=== PATIENT | female | born 1985 | race Caucasian/White ===

== ENCOUNTER 2017-02-24 15:54 | Emergency (ER) | payer SELFPAY ==
[~2017-02-24] VITALS: Ht 162.6 cm; Wt 47.6 kg
--- NOTE | 2017-02-24 16:51 | ED Lower Extremity ---
General Chief Complaint: Lower Extremity Stated Complaint: R FOOT PAIN Nursing Triage Note: TO ED AMB REPORTS THAT SHE TWISTED R ANKLE ON SUNDAY HAS HAD PIAN SINCE. Nursing Sepsis Screen: No Definite Risk Source: patient Exam Limitations: no limitations History of Present Illness Time seen by provider: 16:44 Initial Comments This 31-year-old white female presents after sustaining an inversion injury to her right forefoot and ankle that occurred 2 days ago. The patient's complaint of pain over the base of the fifth metatarsal. She denies loss of sensation or range of motion affected extremity. She denies other injury and her accident. Patient is complaining of moderate sharp pain over the base of the fifth metatarsal made worse with palpation or movement. Allergies and Home Medications Allergies Coded Allergies: No Known Drug Allergies (Unverified , 02/24/17) Home Medications No Active Prescriptions or Reported Meds Constitutional: No chills, No fever EENTM: no symptoms reported Respiratory: No cough Cardiovascular: no symptoms reported Gastrointestinal: No abdominal pain Genitourinary: no symptoms reported Musculoskeletal: see HPI, joint pain (right forefoot pain) Skin: no symptoms reported Psychiatric/Neurological: No Symptoms Reported Past Hlundqp-Nljhsl-Xokrsq Hx Patient Social History Alcohol Use: Denies Use Recreational Drug Use: No Smoking Status: Current Everyday Smoker Recent Foreign Travel: No Contact w/Someone Who Travel: No Recent Infectious Disease Expo: No Reviewed Nursing Assessment Reviewed/Agree w Nursing PMH: Yes Physical Exam Vital Signs Vital Sign - Last 12Hours 02/24/17 16:00 Temp 99.0 Pulse 106 Resp 18 B/P (MAP) 118/76 O2 Delivery Room Air Capillary Refill : Less Than 3 Seconds General Appearance: WD/WN, no apparent distress Neck: normal inspection Cardiovascular: regular rate, rhythm Respiratory: lungs clear Gastrointestinal: normal bowel sounds, soft Feet: right foot swelling, right foot other (there is tenderness to palpation over the base of the right fifth metatarsal.) Neurologic/Tendon: normal sensation, normal motor functions Neurologic/Psychiatric: no motor/sensory deficits, alert, normal mood/affect Skin: normal color, warm/dry Progress/Results/Core Measures Results/Orders My Orders Orders - KADE ELDRIDGE MD Ankle, Right, 2 Views (02/24/17 16:06) Foot, Right, 3 View (02/24/17 16:06) Vital Signs/I&O Vital Sign - Last 12Hours 02/24/17 16:00 Temp 99.0 Pulse 106 Resp 18 B/P (MAP) 118/76 O2 Delivery Room Air Blood Pressure Mean: 90 Progress Note : Time: 16:47 Progress Note X-ray of the right foot and ankle demonstrated nondisplaced fracture the base of the fifth metatarsal. Romulo wrap and a postop shoe were applied. Departure Impression Impression: Primary Impression: Fracture of base of fifth metatarsal bone Qualified Codes: S92.351A - Displaced fracture of fifth metatarsal bone, right foot, initial encounter for closed fracture Disposition: HOME, SELF-CARE Condition: Improved Departure-Patient Inst. Decision time for Depature: 16:49 Referrals: NO,LOCAL PHYSICIAN (PCP) Primary Care Physician MARISA ADEN MD Patient Instructions: Stress Fracture of the Metatarsal Bone (DC) Add. Discharge Instructions: Romulo wrap and postop shoe for comfort. Hydrocodone for pain. Follow-up with Dr. Aden. Return if any problems or questions. All discharge instructions reviewed with patient and/or family. Voiced understanding. Scripts No Active Prescriptions or Reported Meds KADE ELDRIDGE MD Feb 24, 2017 16:51
--- NOTE | 2017-02-24 16:54 | Diagnostic Imaging Report ---
INDICATION: Rolled right foot and ankle with pain and swelling, laterally. TECHNIQUE: Three views of the right foot. CORRELATION STUDY: None. FINDINGS: There is a cleft-like defect at the lateral base of the fifth metatarsal. There is a lucency or gap of approximately nearly 2 mm. Remaining osseous structures appear to be intact and unremarkable. IMPRESSION: Lucency at the base of the fifth metatarsal. This has a somewhat sclerotic margin which may be reflective of a previous injury. Acute injury is not excluded and correlation with the patient's symptoms and site of pain is recommended. Otherwise, the right foot is unremarkable. Dictated by: Dictated on workstation # [id number]
[2017-02-24 16:56] VITALS: BP 118/76
--- OUTSIDE RECORDS SUMMARY | 2017-02-25 15:02 | XMS REPORT ---
Author Author MILAN HAMPTON Organization [employer] Address Unknown Phone Unavailable Care Team Providers Care Security Compliance Specialist Name Role Phone MILAN HAMPTON CP Unavailable Allergies, Adverse Reactions, Alerts Substance Reaction Event Type N.K.D.A. Info Not Available Non Drug Allergy Problems Problem Type Condition Code Onset Dates Condition Status Assessment Abdominal pain R10.9 Active Assessment Amenorrhea N91.2 Active Medications No Known Medications Procedures Procedure Coding System Code Date Office Visit, New Pt., Level 3 CPT-4 42206 November 30, 2015 URINALYSIS, AUTO, W/O SCOPE CPT-4 42741 November 30, 2015 URINE TEST CPT-4 04180 November 30, 2015 Vital Signs Date/Time: November 30, 2015 Cardiac Monitoring Heart Rate 76 bpm Temperature 98.4 F Weight 108.4 lbs Blood Pressure Diastolic 76 mmHg Blood Pressure Systolic 104 mmHg Results Name Result Date Reference Range Unit Abnormality Flag TEST, URINE (IN HOUSE) ----RESULTS Negative 20151130 ----Lot # [id number] ----Control + 20151130 ----Exp date 20151130 UA LONG DIP (IN HOUSE) ----ARTEM Negative 20151130 ----GLU Negative 20151130 ----SG 1.030 20151130 ----KET Negative 20151130 ----pH 6.0 20151130 ----Protein Negative 20151130 ----BLO Negative 20151130 ----MAITE Negative 20151130 ----Color Dark Yellow 20151130 ----Odor None 20151130 ----Exp date 20151130 ----URO 0.2 20151130 ----NIT Negative 20151130 ----Clarity Slightly Cloudy 20151130 ----Lot # [id number] Summary Purpose [employer] Submission
--- NOTE | 2017-02-26 12:25 | RADIOLOGY REPORT ---
NAME: AUSTEN LLAMAS [facility] REC#: [id number] PT STATUS: REG ER : 1985 PHYSICIAN: KADE ELDRIDGE MD ADMIT DATE: 02/24/17/ER Signed Date of Exam:02/24/17 ANKLE, RIGHT, 3 VIEWS INDICATION: Right foot and ankle, complains of pain and swelling around the lateral side. FINDINGS: 3 views of the right ankle demonstrates normal ossification. There is a fracture through the base of the fifth metatarsal. IMPRESSION: There is a fracture through the base of the fifth metatarsal. Dictated by: Dictated on workstation # [id number] Dict: 02/24/17 1629 Trans: 02/24/17 1639 [id number] Interpreted by: ABHILASH ALVARES MD Electronically signed by: ABHILASH ALVARES MD 02/24/17 1639 MTDD
== END 2017-02-24 16:58 | disposition home or self-care (01) ==
LOC: ER 15:58
DX: S92.354A Nondisplaced fracture of fifth metatarsal bone, right foot, initial encounter for closed fracture (principal); F17.210 Nicotine dependence, cigarettes, uncomplicated; X50.0XXA Overexertion from strenuous movement or load, initial encounter
CPT/HCPCS: 73600; 73610; 73630; 99283

== ENCOUNTER 2018-09-02 15:12 | Emergency (ER) | payer SELFPAY ==
[~2018-09-02] VITALS: Ht 165.1 cm; Wt 58.1 kg
--- NOTE | 2018-09-02 15:40 | ED General ---
General Stated Complaint: LOWER BACK AND ABD PAIN/BLOOD IN STOOL Source of Information: Patient Exam Limitations: No Limitations History of Present Illness Date Seen by Provider: Sep 02, 2018 Time Seen by Provider: 15:38 Initial Comments To ER per private vehicle with reports of left lower back pain and blood in the stool after bowel movements. She is on her menstrual period started spotting yesterday. However she's had normal appearing bowel movements, formed, neither constipated nor diarrhea with some blood following the bowel movements. She denies any rectal pain. No nausea or vomiting. No fevers or chills. No lightheadedness. No history of this. Timing/Duration: 1-2 Days Severity: Moderate Associated Systoms: No Nausea/Vomiting Allergies and Home Medications Allergies Coded Allergies: aspirin (Verified Adverse Reaction, Unknown, 09/02/18) WAS TOLD NOT TO TAKE IT AFTER HER TUBAL PREGANANCY Home Medications No Active Prescriptions or Reported Meds Patient Home Medication List Home Medication List Reviewed: Yes Review of Systems Review of Systems Constitutional: see HPI EENTM: see HPI Respiratory: no symptoms reported Cardiovascular: no symptoms reported Gastrointestinal: LLQ, abdominal pain; No constipation, No diarrhea, No hematemesis, No nausea, No vomiting Genitourinary: no symptoms reported Musculoskeletal: see HPI Skin: no symptoms reported Psychiatric/Neurological: No Symptoms Reported Hematologic/Lymphatic: No Symptoms Reported Past Orduhlx-Dvytsg-Khxjna Hx Patient Social History Recent Foreign Travel: No Contact w/Someone Who Travel: No Past Medical History Surgeries: Yes (TUBAL PREG. ) Neurological: No Genitourinary: No Gastrointestinal: No Musculoskeletal: No Endocrine: No HEENT: No Cancer: No Psychosocial: No Physical Exam Vital Signs Vital Signs - First Documented 09/02/18 15:25 Temp 98.0 Pulse 99 Resp 16 B/P (MAP) 123/84 (97) Pulse Ox 99 O2 Delivery Room Air Capillary Refill : Height, Weight, BMI Height: 5'4.00" Weight: 105lbs. oz. 47.696072ba; BMI Method:Stated General Appearance: No Apparent Distress, WD/WN Eyes: Bilateral Eye Normal Inspection, Bilateral Eye PERRL, Bilateral Eye EOMI HEENT: PERRL/EOMI, TMs Normal Neck: Full Range of Motion, Normal Inspection Respiratory: No Accessory Muscle Use, No Respiratory Distress Gastrointestinal: Normal Bowel Sounds, Non Tender, Soft Genital/Rectal: Other (rectal exam done with Ratna JAMES at the bedside. There is a very minor amount of dried blood around the rectum. I do not see any external hemorrhoids or fissures.) Extremity: Normal Capillary Refill, Normal Inspection Neurologic/Psychiatric: Alert, Oriented x3, No Motor/Sensory Deficits Skin: Normal Color, Warm/Dry Progress/Results/Core Measures Suspected Sepsis SIRS Temperature: Pulse: Respiratory Rate: Laboratory Tests 09/02/18 15:35: White Blood Count 5.0 Blood Pressure / Mean: Laboratory Tests 09/02/18 15:35: Creatinine 0.80, Platelet Count 182, Total Bilirubin 0.4 Results/Orders Lab Results Laboratory Tests Test 09/02/18 15:30 09/02/18 15:35 Range/Units Urine Color YELLOW Urine Clarity CLEAR Urine pH 6 5-9 Urine Specific [place] 1.025 H 1.016-1.022 Urine Protein 1+ H NEGATIVE Urine Glucose (UA) NEGATIVE NEGATIVE Urine Ketones NEGATIVE NEGATIVE Urine Nitrite NEGATIVE NEGATIVE Urine Bilirubin NEGATIVE NEGATIVE Urine Urobilinogen NORMAL NORMAL MG/DL Urine Leukocyte Esterase 1+ H NEGATIVE Urine RBC (Auto) 2+ H NEGATIVE Urine RBC NONE /HPF Urine WBC RARE /HPF Urine Squamous Epithelial Cells 2-5 /HPF Urine Crystals NONE /LPF Urine Bacteria NEGATIVE /HPF Urine Casts NONE /LPF Urine Mucus NEGATIVE /LPF Urine Culture Indicated NO White Blood Count 5.0 4.3-11.0 10^3/uL Red Blood Count 4.64 4.35-5.85 10^6/uL Hemoglobin 14.3 11.5-16.0 G/DL Hematocrit 42 35-52 % Mean Corpuscular Volume 90 80-99 FL Mean Corpuscular Hemoglobin 31 25-34 PG Mean Corpuscular Hemoglobin Concent 34 32-36 G/DL Red Cell Distribution Width 14.0 10.0-14.5 % Platelet Count 182 130-400 10^3/uL Mean Platelet Volume 11.0 H 7.4-10.4 FL Neutrophils (%) (Auto) 60 42-75 % Lymphocytes (%) (Auto) 28 12-44 % Monocytes (%) (Auto) 9 0-12 % Eosinophils (%) (Auto) 2 0-10 % Basophils (%) (Auto) 0 0-10 % Neutrophils # (Auto) 3.0 1.8-7.8 X 10^3 Lymphocytes # (Auto) 1.4 1.0-4.0 X 10^3 Monocytes # (Auto) 0.5 0.0-1.0 X 10^3 Eosinophils # (Auto) 0.1 0.0-0.3 10^3/uL Basophils # (Auto) 0.0 0.0-0.1 10^3/uL Sodium Level 137 135-145 MMOL/L Potassium Level 3.5 L 3.6-5.0 MMOL/L Chloride Level 104 98-107 MMOL/L Carbon Dioxide Level 26 21-32 MMOL/L Anion Gap 7 5-14 MMOL/L Blood Urea Nitrogen 10 7-18 MG/DL Creatinine 0.80 0.60-1.30 MG/DL Estimat Glomerular Filtration Rate > 60 BUN/Creatinine Ratio 13 Glucose Level 90 70-105 MG/DL Calcium Level 9.5 8.5-10.1 MG/DL Corrected Calcium 9.3 8.5-10.1 MG/DL Total Bilirubin 0.4 0.1-1.0 MG/DL Aspartate Amino Transf (AST/SGOT) 37 H 5-34 U/L Alanine Aminotransferase (ALT/SGPT) 43 0-55 U/L Alkaline Phosphatase 61 40-136 U/L Total Protein 8.0 6.4-8.2 GM/DL Albumin 4.3 3.2-4.5 GM/DL My Orders Orders - KAYLENE BOO APRN Cbc With Automated Diff (09/02/18 15:20) Comprehensive Metabolic Panel (09/02/18 15:20) Ua Culture If Indicated (09/02/18 15:20) Iv Heplock-Insert (Order) (09/02/18 15:20) Ct Abdomen/Pelvis W (09/02/18 15:36) Urine Bedside (09/02/18 15:36) Ns Iv 1000 Ml (Sodium Chloride 0.9%) (09/02/18 15:45) Iohexol Injection (Omnipaque 350 Mg/Ml 1 (09/02/18 15:45) Contrast Received (Contrast Received) (09/02/18 15:45) Ns (Ivpb) (Sodium Chloride 0.9% Ivpb Bag (09/02/18 15:45) Medications Given in ED Current Medications Medications Dose Ordered Sig/Leah Route Start Time Stop Time Status Last Admin Dose Admin Iohexol 100 ml ONCE ONCE IV 09/02/18 15:45 09/02/18 15:46 DC 09/02/18 16:04 100 ML Sodium Chloride 100 ml ONCE ONCE IV 09/02/18 15:45 09/02/18 15:46 DC 09/02/18 16:04 80 ML Vital Signs/I&O 09/02/18 15:25 Temp 98.0 Pulse 99 Resp 16 B/P (MAP) 123/84 (97) Pulse Ox 99 O2 Delivery Room Air Capillary Refill : Diagnostic Imaging Diagonstic Imaging: CT Comments NAME: AUSTEN LLAMAS [facility] REC#: [id number] PT STATUS: REG ER : 1985 PHYSICIAN: KAYLENE BOO APRN ADMIT DATE: 09/02/18/ER Draft Date of Exam:09/02/18 CT ABDOMEN/PELVIS W PROCEDURE: CT abdomen and pelvis with contrast. TECHNIQUE: Multiple contiguous axial images were obtained through the abdomen and pelvis after administration of intravenous contrast. INDICATION: Bloody stools with left back pain. COMPARISON: None available. FINDINGS: Lower chest: The lung bases are clear. No pericardial or pleural effusion. Peritoneum: No free intraperitoneal air or fluid. Liver and biliary system: The liver is normal. The gallbladder is normal. No biliary duct dilation. Spleen and Pancreas: Spleen is normal. The pancreas enhances normally without mass lesion or peripancreatic inflammatory changes. Adrenals: Normal. tract: The kidneys enhance normally without suspicious mass or obstruction. Urinary bladder is distended without wall thickening. Uterus and ovaries are normal in appearance. Air-filled tampon is present within the vagina. GI tract: Stomach is decompressed. No bowel obstruction. There is low-attenuation wall thickening in a contiguous fashion throughout the descending colon, sigmoid colon and rectum to the level of the anus. No loculated fluid collections to indicate abscess. Normal appendix. The terminal ileum is normal. Vasculature and Lymph nodes: Normal caliber aorta. No abdominal or pelvic lymphadenopathy. Musculoskeletal: No concerning osseous lesion. IMPRESSION: 1. Contiguous low-attenuation wall thickening of the colon from the level of the rectum through the descending colon raises the possibility of a subacute inflammatory bowel disease such as ulcerative colitis. No perforation, bowel obstruction, or abscess formation. Dictated on workstation # [id number] Dict: 09/02/18 1633 Trans: 09/02/18 1645 [id number] Interpreted by: TEJAL VANN MD Electronically signed by: Departure Communication (Admissions) [id number] discussed the findings on CT with the patient and the need for follow-up with surgeon to get a colonoscopy. In the meantime I'll put her on a course of Bactrim, Flagyl, prednisone. Impression Primary Impression: Colitis Disposition: HOME, SELF-CARE Condition: Stable Departure-Patient Inst. Decision time for Depature: 17:00 Referrals: JOSHUA PORTILLO BRETT D DO JENKINS, XAVIER M MD KIDO, TAKAAKI MD NO,LOCAL PHYSICIAN (PCP) Primary Care Physician Patient Instructions: General (DC) Add. Discharge Instructions: 1. Her CT scan showed findings of wall thickening of the descending colon all the way down to the rectum. This could be either infectious in nature such as from bacteria or it could be autoimmune such as in the case of ulcerative colitis or Crohns disease. He will need to follow-up with surgeon to schedule a colonoscopy to further evaluate this. In the meantime take the medication as directed. Scripts Prednisone (Prednisone) 10 Mg Tab 10 MG PO UD, #30 EACH 5 tablets on day 1 and 2 4 tablets on day 3 and 4 3 tablets on day 5 and 6 2 tablets on day 7 and 8 One tablet on day 9/10 Prov: KAYLENE BOO WAIVER ANALYST 09/02/18 Sulfamethoxazole/Trimethoprim (Bactrim Ds Tablet) 1 Each Tablet 1 EACH PO BID, #14 TAB Prov: KAYLENE BOO WAIVER ANALYST 09/02/18 Metronidazole (Metronidazole) 500 Mg Tablet 500 MG PO TID, #21 TAB Prov: KAYLENE BOO WAIVER ANALYST 09/02/18 KAYLENE BOO WAIVER ANALYST Sep 02, 2018 15:40
[2018-09-02] MEDS ORDERED: RECEIVED CONTRAST (Hold Metformin) IV SCH (15:45)
[2018-09-02] MEDS ORDERED: NS IV 1000 ML 1,000 ML IV SCH (15:45)
[2018-09-02] MEDS ORDERED: NS 100 ML (IVPB) BAG IV ONE (15:45)
[2018-09-02] MEDS ORDERED: IOHEXOL 350 MG/ML 100 ML (OMNIPAQUE 350) VIAL IV ONE (15:45)
[2018-09-02 15:47] LABS: BASOPHILS % (AUTO) 0 % (0-10); EOSINOPHILS # (AUTO) 0.1 10^3/uL (0.0-0.3); EOSINOPHILS % (AUTO) 2 % (0-10); HEMATOCRIT 42 % (35-52); HEMOGLOBIN 14.3 G/DL (11.5-16.0); LYMPHOCYTES # (AUTO) 1.4 X 10^3 (1.0-4.0); LYMPHOCYTES % (AUTO) 28 % (12-44); MEAN CORPUSCULAR HEMOGLOBIN 31 PG (25-34); MEAN CORPUSCULAR HGB CONC 34 G/DL (32-36); MEAN CORPUSCULAR VOLUME 90 FL (80-99); MONOCYTES # (AUTO) 0.5 X 10^3 (0.0-1.0); MONOCYTES % (AUTO) 9 % (0-12); NEUTROPHILS % (AUTO) 60 % (42-75); PLATELET COUNT 182 10^3/uL (130-400); RED BLOOD COUNT 4.64 10^6/uL (4.35-5.85)
[2018-09-02 15:50] LABS: BILIRUBIN,URINE NEGATIVE (NEGATIVE); CLARITY,URINE CLEAR; COLOR,URINE YELLOW; GLUCOSE, URINE (UA) NEGATIVE (NEGATIVE); KETONES,URINE NEGATIVE (NEGATIVE); LEUKOCYTE ESTERASE ,URINE 1+ (NEGATIVE); NITRITE,URINE NEGATIVE (NEGATIVE); PH,URINE 6 (5-9); PROTEIN,URINE 1+ (NEGATIVE); UROBILINOGEN,URINE NORMAL (NORMAL)
[2018-09-02 15:51] LABS: BACTERIA,URINE NEGATIVE /HPF; WBC,URINE RARE /HPF
[2018-09-02 16:09] LABS: ALANINE AMINOTRANSFERASE 43 U/L (0-55); ALBUMIN 4.3 GM/DL (3.2-4.5); ALKALINE PHOSPHATASE 61 U/L (40-136); BILIRUBIN,TOTAL 0.4 MG/DL (0.1-1.0); BUN/CREATININE RATIO 13; CALCIUM 9.5 MG/DL (8.5-10.1); CARBON DIOXIDE 26 MMOL/L (21-32); CHLORIDE 104 MMOL/L (98-107); GFR ESTIMATED > 60; GLUCOSE 90 MG/DL (70-105); POTASSIUM 3.5 MMOL/L (3.6-5.0); SODIUM 137 MMOL/L (135-145)
--- NOTE | 2018-09-02 16:45 | Diagnostic Imaging Report ---
PROCEDURE: CT abdomen and pelvis with contrast. TECHNIQUE: Multiple contiguous axial images were obtained through the abdomen and pelvis after administration of intravenous contrast. INDICATION: Bloody stools with left back pain. COMPARISON: None available. FINDINGS: Lower chest: The lung bases are clear. No pericardial or pleural effusion. Peritoneum: No free intraperitoneal air or fluid. Liver and biliary system: The liver is normal. The gallbladder is normal. No biliary duct dilation. Spleen and Pancreas: Spleen is normal. The pancreas enhances normally without mass lesion or peripancreatic inflammatory changes. Adrenals: Normal. tract: The kidneys enhance normally without suspicious mass or obstruction. Urinary bladder is distended without wall thickening. Uterus and ovaries are normal in appearance. Air-filled tampon is present within the vagina. GI tract: Stomach is decompressed. No bowel obstruction. There is low-attenuation wall thickening in a contiguous fashion throughout the descending colon, sigmoid colon and rectum to the level of the anus. No loculated fluid collections to indicate abscess. Normal appendix. The terminal ileum is normal. Vasculature and Lymph nodes: Normal caliber aorta. No abdominal or pelvic lymphadenopathy. Musculoskeletal: No concerning osseous lesion. IMPRESSION: 1. Contiguous low-attenuation wall thickening of the colon from the level of the rectum through the descending colon raises the possibility of a subacute inflammatory bowel disease such as ulcerative colitis. No perforation, bowel obstruction, or abscess formation. Dictated by: Dictated on workstation # [id number]
--- NOTE | 2018-09-02 16:57 | NUR ---
KAYLENE IN TALKING TO PT AT THIS TIME.
[2018-09-02] MEDS ORDERED: SULF1TAB35 PO (17:04)
[2018-09-02] MEDS ORDERED: METR-145 PO (17:04)
[2018-09-02] MEDS ORDERED: PRD10T PO (17:04)
[2018-09-02 17:26] VITALS: BP 106/63
== END 2018-09-02 17:26 | disposition home or self-care (01) ==
LOC: EDUNIT# 15:12 → ER 15:13
DX: K52.9 Noninfective gastroenteritis and colitis, unspecified (principal); Z88.6 Allergy status to analgesic agent
CPT/HCPCS: 36415; 74177; 80053; 81000; 84703; 85025

== ENCOUNTER 2018-10-17 14:27 | Outpatient (CLI) | payer OTHER ==
[~2018-10-17] VITALS: Ht 165.1 cm; Wt 58.1 kg
[~2018-10-17 14:27] MED LIST: METR-145 PO; PRD10T PO; SULF1TAB35 PO
== END 2018-10-17 14:58 | disposition home or self-care (01) ==
LOC: PREOP 14:27
PROVIDERS: ATTEND Surgery
DX: Z01.818 Encounter for other preprocedural examination (principal)

== ENCOUNTER 2018-10-21 09:29 | Day surgery (SDC) | payer OTHER ==
[~2018-10-21] VITALS: Ht 165.1 cm; Wt 58.1 kg
[2018-10-21] MEDS ORDERED: LACTATED RINGERS 1,000 ML IV STA (09:30)
[2018-10-21] MEDS ORDERED: LACTATED RINGERS 1,000 ML IV ONE (09:41)
[2018-10-21] MEDS ORDERED: PROPOFOL INJECTION 50 ML IV ONE (09:59)
[2018-10-21] MEDS ORDERED: MIDAZOLAM 2 MG/2 ML (VERSED) VIAL ONE (09:59)
--- NOTE | 2018-10-21 10:08 | Progress Note-Pre Operative ---
Pre-Operative Progress Note H&P Reviewed The H&P was reviewed, patient examined and no changes noted. Time Seen by Provider: 10:04 Date H&P Reviewed: Oct 21, 2018 Time H&P Reviewed: 10:05 Pre-Operative Diagnosis: rectal bleed JOSHUA PORTILLO DO Oct 21, 2018 10:08
[2018-10-21 10:13] VITALS: BP 113/71
--- NOTE | 2018-10-21 10:48 | Progress Note-Post Operative ---
Post-Operative Progess Note Surgeon (s)/Accounting Director (s) Surgeon JOSHUA PORTILLO DO Accounting Director: none Pre-Operative Diagnosis rectal bleed Post-Operative Diagnosis colon polyp int hemorrhoids Procedure & Operative Findings Date of Procedure 10/21/18 Procedure Performed/Findings Colon with hot bx Anesthesia Type IV Sedation by CUTTING AND SPLICING SUPERVISOR Estimated Blood Loss Estimated blood loss (mL): scant Specimens/Packing Specimens Removed rectal polyp JOSHUA PORTILLO DO Oct 21, 2018 10:47
--- NOTE | 2018-10-21 10:49 | Endoscopy Discharge Instruct ---
Endo Procedure/Findings Findings 1.: Polyp 2.: Internal Hemorrhoids Discharge Instructions - Activity: You might feel a little sleepy until tomorrow. This is due to the medicine you received to relax you. Until tomorrow, you should: NOT drive a car, operate machinery or power tools. NOT drink any alcoholic beverages. NOT make any important decisions or sign importortant papers. Do not return to work until tomorrow, unless otherwise instructed. Resume previous activities tomorrow. Diet: Start by taking liquids. If you tolerate liquids, advance to solid food. Make appt for 2 weeks Notify Physician - If you experience excessive bleeding, unusual abdominal pain, fever, or chest pain, contact your doctor immediately. Follow-Up: - I have received and understand the above instructions and will call my doctor if I have any further questions. Patient Signature Date Nurse Signature Other (Relationship) JOSHUA PORTILLO DO Oct 21, 2018 10:49
[2018-10-21 10:55] VITALS: BP 102/57
[2018-10-21 11:20] VITALS: BP 120/74
[2018-10-21 11:25] VITALS: BP 120/74
--- NOTE | 2018-10-21 12:01 | Anesthesia-General Post-Op ---
MAC Patient Condition Mental Status/LOC: Same as Preop Cardiovascular: Satisfactory Nausea/Vomiting: Absent Respiratory: Satisfactory Pain: Controlled Complications: Absent Post Op Complications Complications None Follow Up Care/Instructions Patient Instructions None needed. Anesthesiology Discharge Order Discharge Order Patient is doing well, no complaints, stable vital signs, no apparent adverse anesthesia problems. No complications reported per nursing. MARGARITA RAGLAND CRNA Oct 21, 2018 12:01
--- NOTE | 2018-10-22 04:08 | OPERATIVE REPORT ---
DATE OF SERVICE: 10/21/2018 PREOPERATIVE DIAGNOSIS: Rectal bleed. POSTOPERATIVE DIAGNOSES: 1. Colon polyp. 2. Internal hemorrhoids. PROCEDURE: Colonoscopy with hot biopsy. SURGEON: Alban Redman D.O. SILICA SPRAY MIXER: None. ANESTHESIA: IV sedation by TILE ERECTOR. SPECIMEN: Rectal polyp. BLOOD LOSS: Scant. FLUIDS: Per anesthesia. POSTOPERATIVE CONDITION: Stable. INDICATION FOR PROCEDURE: The patient is a 33-year-old female, who had been having some rectal bleeding and needed a workup. FINDINGS: The patient had a small polyp in the rectum, was biopsied and removed totally with hot biopsy. Also had some mild hemorrhoids, what looked like there may have been raw so it could have been causing bleeding, nothing else seen. PROCEDURE NOTE: After informed consent was obtained, the patient was brought to the endoscopy suite, placed in the bed in the left lateral decubitus position. She was administered IV sedation by the TILE ERECTOR who then monitored her vitals the entire time, heart rate, blood pressure and pulse ox and the scope was inserted. Immediately upon entry noted a polyp in the rectum, did elect to do a hot biopsy, able to remove the polyp totally with hot biopsy and then continued on pushing all the way to the cecum, took a picture of appendiceal orifice and able to get into the terminal ileum, took a picture of this as well and then slowly withdrew the scope insufflating to look circumferentially at the stein, looking at the cecum up the ascending colon to the hepatic flexure, then down the transverse colon, splenic flexure into the descending colon and down the sigmoid and finally into the rectum, retroflexed the rectal vault, saw some grade I internal hemorrhoids, and they looked a little bit red, looked like they probably had been inflamed and this most likely caused the bleeding, did not see an anal fissure. At this point, then removed the scope. The patient tolerated the procedure and she was recovered in the endoscopy suite. Job ID: [id number] DocumentID: [id number] Dictated Date: 10/21/2018 16:19:22 Community Relations Advisor Date: 10/22/2018 04:07:27 Dictated By: ALBAN REDMAN DO MTDJosh
== END 2018-10-21 11:25 | disposition home or self-care (01) ==
LOC: ENDO 09:29
PROVIDERS: ATTEND Surgery
DX: K62.1 Rectal polyp (principal); K64.0 First degree hemorrhoids; F17.210 Nicotine dependence, cigarettes, uncomplicated
CPT/HCPCS: 84703

== ENCOUNTER → 2018-11-08 | Emergency (ER) | payer OTHER ==
--- NOTE | 2018-11-08 10:57 | NUR ---
Called to room. Pt not in waiting room.
== END | disposition left against medical advice (07) ==
LOC: EDUNIT# 10:09 → ER 10:11
DX: R42 Dizziness and giddiness (principal)

== ENCOUNTER → 2018-11-12 | Outpatient (CLI) | payer OTHER ==
--- NOTE | 2018-11-12 10:47 | Diagnostic Imaging Report ---
INDICATION: Elevated liver enzymes. Right upper quadrant pain. History of alcohol usage. TECHNIQUE: Multiple grayscale sonographic images were obtained of the right upper quadrant of the abdomen. CORRELATION STUDY: None FINDINGS: LIVER: There is uniform echotexture within the visualized portions of the liver. There is normal, hepatopedal direction of flow within the main portal vein. Liver length 13.2 cm. GALLBLADDER: The gallbladder demonstrates no definitive shadowing gallstones. No abnormal gallbladder wall thickening or pericholecystic fluid. COMMON BILE DUCT: Nondilated at 2 mm. PANCREAS: Visualized portions appearing unremarkable. RIGHT KIDNEY: Measures 9.3 x 3.9 x 4.5 cm. No hydronephrosis. AORTA/IVC: Not well visualized. OTHER: None. IMPRESSION: 1. Negative appearing right upper quadrant abdominal ultrasound. Dictated by: Dictated on workstation # [id number]
== END ==
LOC: RAD 08:41
PROVIDERS: ATTEND Nurse Practitioner Primary Care
DX: F10.10 Alcohol abuse, uncomplicated (principal); R10.11 Right upper quadrant pain; R74.8 Abnormal levels of other serum enzymes
CPT/HCPCS: 76705

== ENCOUNTER 2019-01-04 01:00 | Emergency (ER) | payer SELFPAY, OTHER | END 2019-01-04 02:51 | disposition home or self-care (01) | LOC: ER 01:00 ==

== ENCOUNTER 2019-01-10 22:22 | Emergency (ER) | payer SELFPAY ==
[~2019-01-10] VITALS: Ht 165.1 cm; Wt 59.0 kg
[~2019-01-10 22:22] MED LIST changes: +ACHD5005 PO
--- NOTE | 2019-01-10 22:34 | ED General ---
General Chief Complaint: General Problems/Pain Stated Complaint: R WRIST PAIN Source of Information: Patient Exam Limitations: No Limitations History of Present Illness Date Seen by Provider: January 10, 2019 Time Seen by Provider: 22:32 Initial Comments This patient presents to ER with complaints of right wrist pain. She broke her right wrist on 01/04/19. She is currently wearing a sugar tong splint, states that she was given 10 hydrocodone at the time but is out of them and is having quite a bit of pain in the wrist. No tingling of the fingers. Timing/Duration: 1-2 Days Severity: Moderate Allergies and Home Medications Allergies Coded Allergies: aspirin (Verified Adverse Reaction, Unknown, 09/02/18) WAS TOLD NOT TO TAKE IT AFTER HER TUBAL PREGANANCY Home Medications Hydrocodone Bit/Acetaminophen 1 Tab Tab, 1 EACH PO Q4-6HR PRN for PAIN-MODERATE Prescribed by: KATE RASHEED on 01/04/19 0233 Patient Home Medication List Home Medication List Reviewed: Yes Review of Systems Review of Systems Constitutional: see HPI EENTM: see HPI Respiratory: no symptoms reported Cardiovascular: no symptoms reported Genitourinary: no symptoms reported Musculoskeletal: see HPI Skin: no symptoms reported Psychiatric/Neurological: No Symptoms Reported Hematologic/Lymphatic: No Symptoms Reported Immunological/Allergic: no symptoms reported Past Vhizsjl-Howcmt-Tzyqhd Hx Patient Social History Type Used: Cigarettes Recent Foreign Travel: No Contact w/Someone Who Travel: No Recent Hopitalizations: No Seasonal Allergies Seasonal Allergies: Yes Past Medical History Surgeries: Yes (TUBAL PREG. ) Section, Tubal Ligation Respiratory: Yes Asthma Cardiac: No Neurological: No Genitourinary: No Gastrointestinal: Yes (rectal bleeding) Musculoskeletal: No Endocrine: No HEENT: No Cancer: No Psychosocial: No Integumentary: No Blood Disorders: No Physical Exam Vital Signs Capillary Refill : Height, Weight, BMI Height: 5'5.00" Weight: 130lbs. 0oz. 58.377337kd; 21.3 BMI Method:Stated General Appearance: No Apparent Distress, WD/WN Eyes: Bilateral Eye Normal Inspection, Bilateral Eye PERRL, Bilateral Eye EOMI Neck: Full Range of Motion, Normal Inspection Respiratory: No Accessory Muscle Use Extremity: Normal Capillary Refill, Normal Inspection, Other (right arm is in a sugar tong style splint, fingertips each have brisk capillary refill and normal sensation.) Neurologic/Psychiatric: Alert, Oriented x3 Skin: Normal Color, Warm/Dry Progress/Results/Core Measures Suspected Sepsis SIRS Temperature: Pulse: Respiratory Rate: Blood Pressure / Mean: Results/Orders Vital Signs/I&O Capillary Refill : Departure Impression Primary Impression: Wrist fracture Qualified Codes: S62.101D - Fracture of unspecified carpal bone, right wrist, subsequent encounter for fracture with routine healing Disposition: 01 HOME, SELF-CARE Condition: Stable Departure-Patient Inst. Decision time for Depature: 22:34 Referrals: [facility] [place] Primary Care Physician SILVER HAMILTON APRN (Family) Primary Care Physician Patient Instructions: Wrist Fracture (DC) KAYLENE BOO APRN January 10, 2019 22:34
[2019-01-10] MEDS ORDERED: RX-HYDROCODONE/APAP 5/325 MG #4 TAB PK PO PRN (22:45)
[2019-01-10 22:50] VITALS: BP 121/80
== END 2019-01-10 22:58 | disposition home or self-care (01) ==
LOC: EDUNIT# 22:22 → ER 22:23
DX: S62.91XA Unspecified fracture of right hand, initial encounter for closed fracture (principal); J45.909 Unspecified asthma, uncomplicated; Z87.19 Personal history of other diseases of the digestive system; Z88.6 Allergy status to analgesic agent; Z98.51 Tubal ligation status; Z98.890 Other specified postprocedural states; X58.XXXA Exposure to other specified factors, initial encounter
CPT/HCPCS: 99283

== ENCOUNTER 2019-01-15 11:55 | Outpatient (CLI) | payer OTHER ==
[~2019-01-15] VITALS: Ht 165.1 cm; Wt 59.0 kg
[2019-01-15] MEDS ORDERED: FLUO20CA42 PO (14:25)
[2019-01-16] MEDS ORDERED: HYDR-4226 PO (15:04)
== END 2019-01-15 16:01 | disposition home or self-care (01) ==
LOC: PREOP 11:55
PROVIDERS: ATTEND Orthopaedic Surgery Orthopaedic Trauma
DX: Z01.818 Encounter for other preprocedural examination (principal)

== ENCOUNTER 2019-01-16 11:07 | Day surgery (SDC) | payer OTHER ==
[~2019-01-16] VITALS: Ht 165.1 cm; Wt 59.0 kg
[2019-01-16] VITALS (11 sets, daily range): BP systolic 99–140; BP diastolic 65–101
[~2019-01-16 11:07] MED LIST changes: +FLUO20CA42 PO
[2019-01-16] MEDS ORDERED: ceFAZolin 2 GM/50 ML NS 50 ML ONE (11:59)
[2019-01-16] MEDS ORDERED: fentaNYL INJECTION 100 MCG/2 ML AMP IV ONE (12:00)
[2019-01-16] MEDS ORDERED: BUPIVACAINE 0.25% 30 ML (SENSORCAINE) VIAL ONE (12:04)
[2019-01-16] MEDS ORDERED: ceFAZolin 2 GM/50 ML NS 50 ML IV ONE (12:15)
[2019-01-16] MEDS: LACTATED RINGERS 1,000 ML IV PRN ×3 (12:15→13:15)
[2019-01-16] MEDS ORDERED: morphine INJ 10 MG/ML 1ML (SYR OR VIAL) ONE (14:33)
--- NOTE | 2019-01-16 14:59 | Progress Note-Post Operative ---
Post-Operative Progess Note Surgeon (s)/Care Clinician (s) Surgeon LEON ENNIS DO Care Clinician: Alonso Mathews PA-C Pre-Operative Diagnosis Displaced intraarticular fracture Right distal radius Post-Operative Diagnosis Same Procedure & Operative Findings Date of Procedure 01/16/19 Procedure Performed/Findings ORIF Intraarticular fracture Right distal radius Anesthesia Type General Estimated Blood Loss Estimated blood loss (mL): 25mL Specimens/Packing Specimens Removed None Packing: None Drains: none Disposition: tolerated the procedure well; transferred to PACU in stable condition. LEON ENNIS DO Jan 16, 2019 14:59
[2019-01-16] MEDS ORDERED: PROMETHAZINE INJ 25 MG/ML (PHENERGAN) AMP IVP ONE (15:00)
[2019-01-16] MEDS ORDERED: ONDANSETRON 4 MG/2 ML (SDV) Z0FRAN IVP PRN (15:00)
[2019-01-16] MEDS ORDERED: HYDROmorphone 2 MG/ML VIAL (DILAUDID) IV ONE (15:00)
[2019-01-16] MEDS ORDERED: morphine INJ 10 MG/ML 1ML (SYR OR VIAL) IVP ONE (15:00)
[2019-01-16] MEDS ORDERED: HYDROcodone/APAP 5 MG/325 MG (LORTAB) TAB PO ONE (15:00)
[2019-01-16] MEDS ORDERED: HYDR-4226 PO (15:04)
--- NOTE | 2019-01-16 21:07 | Diagnostic Imaging Report ---
INDICATION: Fluoroscopy during right wrist ORIF. Fluoroscopy was provided in the OR during right wrist ORIF. There is a volar plate and numerous screws transfixing the distal radius. 70 seconds of fluoroscopy was utilized. IMPRESSION: Fluoroscopy during right radius ORIF. Dictated by: Dictated on workstation # [id number]
--- NOTE | 2019-01-22 21:53 | OPERATIVE REPORT ---
DATE OF SERVICE: 01/16/2019 PREPROCEDURE DIAGNOSIS: Closed, displaced, unstable intraarticular fracture of right distal radius. POSTPROCEDURE DIAGNOSIS: Closed, displaced, unstable intraarticular fracture of right distal radius. PROCEDURE: Open reduction and internal fixation of closed, displaced intraarticular fracture of right distal radius, includes three fragments. IMPLANTS USED: Synthes variable angle volar distal radius plate. ATTENDING SURGEON: Dr. Leon Connor. GPS NAVIGATION INSTALLER: Alnoso Mathews PA-C; MrYo Mathews's assistance was required secondary to the complexity of the case, to hold the necessary retractors protecting vital neurovascular structures and to increase the efficiency and efficacy of the case; this case would not have been possible without the presence of an title assistant. ANESTHESIA: General. ESTIMATED BLOOD LOSS: 25 mL. COMPLICATIONS: None. SPECIMENS: None. DRAINS: None. BRIEF HISTORY AND INDICATIONS: The patient is a 33-year-old ugeca-ucwk-oalwgpwr white female who approximately two weeks ago sustained a mechanical fall from a standing height, landing on her outstretched right hand. She subsequently had severe right wrist pain, swelling and gross deformity. She subsequently presented to the [facility] Emergency Department for evaluation. Upon presentation to the ED, plain radiographs of the right wrist demonstrated a displaced, intra-articular fracture of the right distal radius. The patient was placed in a well-molded splint and then referred to our office for definitive outpatient orthopedic followup. Upon presentation to our office, plain radiographs of the right wrist were obtained and reviewed, which did indeed demonstrate a displaced, angulated intra-articular fracture of the right distal radius. On exam, the patient had moderate right wrist edema, there were no open wounds, the skin was intact. She has significant tenderness to palpation over the dorsum of the right wrist and significant pain with any attempts at range of motion. All compartments were soft and compressible, motor and sensory function was grossly intact and the right hand was well perfused. I discussed the nature of her injury in detail including the natural history, prognosis and treatment options. I explained that given the nature of the injury, which included significant displacement, angulation as well as a significant intra-articular component that operative fixation was indicated. I discussed the recommended treatment with the patient in detail preoperatively including the risks, benefits, potential complications, expected outcomes, indications and alternatives. The risks that were discussed included significant bleeding, infection, damage to surrounding neurovascular, intra-articular and soft tissue structures, nerve damage, iatrogenic instability, mechanical irritation and/or failure of the hardware, nonunion, malunion, potential serious reactions to anesthesia, and potential need for secondary surgical procedures. The patient gave informed written consent to proceed as planned after all of her questions were answered to her satisfaction. PROCEDURE NOTE: After correctly identifying the patient as the patient in the preoperative holding area and after her operative site was appropriately marked, she was transferred to the operating room. Once in the operating room, she had successful induction of general anesthesia. She was transferred to radiolucent OR table and placed in the supine position. Right upper extremity was placed on a radiolucent arm table. A nonsterile tourniquet was placed on the upper brachium of the right arm. The right arm was then prepped and draped in the routine sterile fashion. Prior to beginning the case, we completed an operating room timeout with all parties involved in the case in agreement and verified appropriate infusion of prophylactic antibiotics. After exsanguination of the right arm with a sterile Esmarch bandage, the tourniquet was elevated to 250 mmHg. A skin marker was then used to shannan out the planned incision over the volar aspect of the right wrist centered over the FCR tendon, the standard volar Riki approach. After infusion with local anesthetic, a 10 blade scalpel was used to make an incision through the skin and subcutaneous tissue. A 15 blade scalpel was then used to gently dissect through the volar FCR sheath, the FCR tendon was then retracted radially with a self-retaining Weitlaner retractor and then 15 blade scalpel was then used to gently incise through the dorsal FCR tendon sheath. The deeper flexor tendons and median nerve were gently retracted ulnarly with a blunt self-retaining Weitlaner retractor to expose the pronator quadratus muscle. The origin of the pronator quadratus muscle was released from its radial attachment with a 15 blade scalpel. Then, with a 15 blade scalpel, brachioradialis insertion was also carefully released so as to mobilize the distal fragment. Incision was also made through the volar capsule with a 15 blade scalpel so as to obtain visualization of the articular surface of the distal radius. All fragments were then anatomically reduced and temporarily held in place with a series of K-wires. C-arm fluoroscopy confirmed that the fracture had been adequately reduced and was in acceptable alignment in both AP and lateral planes. Visualization of the articular surface confirmed anatomic reduction of the intra-articular fragment, which involved the ulnar aspect of the lunate facet. Once adequate reduction was confirmed, the Synthes volar variable angle distal radius plate was positioned on the volar aspect of the distal radius under C-arm guidance so as to ensure appropriate placement. The plate was temporarily held in place with small K-wires through the plate. Fixation was then applied through the plate first distally with a series of variable angle locking screws. The shaft of the plate was then reduced to the distal radial shaft, so as to recreate the appropriate volar tilt. The shaft of the plate was then secured to the bone with a series of nonlocking fully threaded cortical screws. Once this was accomplished, the remaining fixation was applied through the distal aspect of the plate with a series of variable angle locking screws. This was all completed under fluoroscopic guidance. Once the plate was applied, AP and lateral C-arm imaging confirmed that all the hardware was then in an appropriate position and that alignment and reduction of the distal radius was acceptable. The tourniquet was then deflated and meticulous hemostasis was then achieved. The wound was then irrigated with copious amounts of sterile saline and then standard closure was accomplished using 0 Vicryl for the deep fascia, 3-0 Vicryl for the subcutaneous tissue, and a running 4-0 Monocryl subcuticular stitch and Steri-Strips for the skin. The patient then had a well-molded volar splint and sterile dressings applied, then was awakened from general anesthesia in the operating room without incident. She was then transferred to the PACU in stable condition. She tolerated the procedure quite well without complications. All counts were correct at the end of the case. Job ID: [id number] DocumentID: [id number] Dictated Date: 01/22/2019 14:47:47 Paper Stripper Date: 01/22/2019 21:53:12 Dictated By: LEON VILLA
== END 2019-01-16 17:15 | disposition home or self-care (01) ==
LOC: SDC 11:07
PROVIDERS: ATTEND Orthopaedic Surgery Orthopaedic Trauma
DX: S52.571A Other intraarticular fracture of lower end of right radius, initial encounter for closed fracture (principal); W19.XXXA Unspecified fall, initial encounter; M79.7 Fibromyalgia; F32.9 Major depressive disorder, single episode, unspecified; F17.210 Nicotine dependence, cigarettes, uncomplicated; Z79.899 Other long term (current) drug therapy
CPT/HCPCS: 84703; 87081

== ENCOUNTER 2019-01-31 10:24 | Emergency (ER) | payer SELFPAY ==
[~2019-01-31] VITALS: Ht 165.1 cm; Wt 56.7 kg
[~2019-01-31 10:24] MED LIST changes: +HYDR-4226 PO
[2019-01-31] MEDS ORDERED: IBUPROFEN 800 MG (MOTRIN) TAB PO STA (11:27)
--- NOTE | 2019-01-31 11:31 | ED Upper Extremity ---
General Chief Complaint: Upper Extremity Stated Complaint: RT ARM INJ Nursing Triage Note: Pt reports having wrist surgery for a broken wrist two weeks ago. Pt reports reaching for something today and heard a pop in wrist. Pt is now reporting pain in forearm and bicep area. Nursing Sepsis Screen: No Definite Risk History of Present Illness Date Seen by Provider: Jan 31, 2019 Time Seen by Provider: 11:20 Initial Comments 33-year-old female presents for right forearm pain. She had a right distal radius fracture in late December and ORIF by Dr. Connor. Today she was wearing her splint when she reached across her kitchen table and felt a pop in the right forearm. She denies any numbness or tingling in the right hand. She took Tylenol earlier today. She denies any falls or other trauma related to the right wrist or forearm. She is right-hand dominant. Onset: this morning Pain/Injury Location: right forearm Method of Injury: twisted Modifying Factors: Improves With Cold Therapy, Improves With Rest Allergies and Home Medications Allergies Coded Allergies: aspirin (Verified Adverse Reaction, Unknown, 09/02/18) WAS TOLD NOT TO TAKE IT AFTER HER TUBAL PREGANANCY Home Medications Fluoxetine HCl 20 Mg Capsule, 20 MG PO DAILY, (Reported) Hydrocodone/Acetaminophen 1 Each Tablet, 1 TAB PO Q4-6HR Prescribed by: LEON CONNOR on 01/16/19 1504 Patient Home Medication List Home Medication List Reviewed: Yes Review of Systems Constitutional: no symptoms reported, see HPI Musculoskeletal: see HPI, muscle pain (right forearm) All Other Systems Reviewed Negative Unless Noted: Yes Past Lstbjsc-Ufwatl-Ntvzwl Hx Past Med/Social Hx: Reviewed Nursing Past Med/Soc Hx Patient Social History Alcohol Use: Denies Use Recreational Drug Use: No Drug of Choice: hx 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 Smoking Status: Current Everyday Smoker Type Used: Cigarettes 2nd Hand Smoke Exposure: Yes Recent Foreign Travel: No Contact w/Someone Who Travel: No Recent Infectious Disease Expo: No Recent Hopitalizations: No Seasonal Allergies Seasonal Allergies: Yes Past Medical History Surgeries: Yes (TUBAL PREG-TUBE REMOVED AND OOPHORECTOMY) Section Respiratory: Yes (CHILDHOOD ) Asthma Cardiac: No Neurological: No Female Reproductive Disorders: Denies Sexually Transmitted Disease: No HIV/AIDS: No Genitourinary: No Gastrointestinal: Yes (HEP C) Chronic Constipation, Chronic Diarrhea, Hepatitis, Gall Bladder Disease Musculoskeletal: Yes Fibromyalgia, Chronic Back Pain, Fractures Endocrine: No HEENT: No Loss of Vision: Denies Hearing Impairment: Denies Cancer: No Psychosocial: Yes Depression Integumentary: No Blood Disorders: No Adverse Reaction/Blood Tranf: No (N/A) Physical Exam Vital Signs Vital Signs - First Documented 01/31/19 10:36 Temp 98.2 Pulse 90 Resp 16 B/P (MAP) 123/98 (106) Pulse Ox 97 O2 Delivery Room Air Capillary Refill : Less Than 3 Seconds Height, Weight, BMI Height: 5'5.00" Weight: 125lbs. 0.0oz. 56.707924kk; 21.6 BMI Method:Stated General Appearance: WD/WN, no apparent distress Cardiovascular: normal peripheral pulses, regular rate, rhythm Respiratory: chest non-tender, lungs clear, normal breath sounds Wrist: Yes bone tenderness (distal radius), Yes limited ROM (secondary to surgery right distal radius. Incision right wrist, volar surface, well healed with no signs of infection. ), Yes mass (Soft tissue swelling medial aspect right forearm, pt reports this has been present for many years. No erythema, warmth, induration or fluctuance. ), Yes pain, Yes soft tissue tenderness (right forearm); No swelling Hand: normal inspection, non-tender, no evidence of injury, normal ROM, Right Neurologic/Psychiatric: no motor/sensory deficits, alert, normal mood/affect, oriented x 3 Skin: normal color, warm/dry Lymphatic: no adenopathy Progress/Results/Core Measures Results/Orders My Orders Orders - CHELSEY DOWLING Ibuprofen Tablet (Motrin Tablet) (01/31/19 11:27) Forearm, Right, 2 Views (01/31/19 11:27) Vital Signs/I&O 01/31/19 01/31/19 10:36 12:00 Temp 98.2 98.2 Pulse 90 90 Resp 16 16 B/P (MAP) 123/98 (106) 123/98 (106) Pulse Ox 97 97 O2 Delivery Room Air Room Air Blood Pressure Mean: 106 Diagnostic Imaging Diagonstic Imaging: Xray Plain Films/CT/US/NM/MRI: forearm Comments NAME: AUSTEN LLAMAS [facility] REC#: [id number] PT STATUS: REG ER : 1985 PHYSICIAN: CHELSEY DOWLING ADMIT DATE: 01/31/19/ER Draft Date of Exam:01/31/19 FOREARM, RIGHT, 2 VIEWS INDICATION: 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 COMPARISON: 01/04/2019. TECHNIQUE: 2 radiographs of the right forearm dated 01/31/2019. FINDINGS: Plate and screw fixation of the distal radius is present without evidence of hardware complication. No new fracture or dislocation. No destructive osseous process. Carpal alignment is well maintained. Focal soft tissue prominence is identified medial to the proximal ulnar shaft, similar to the prior examination. IMPRESSION: Plate and screw fixation of the distal radius without evidence of hardware complication. No new acute osseous abnormality. Focal rounded soft tissue prominence medial to the proximal mid ulnar shaft overlying the subcutaneous tissues. This is of uncertain etiology though appears to have been present on prior imaging. Recommend direct visualization. Dictated on workstation # [id number] Dict: 01/31/19 1137 Trans: 01/31/19 1143 [id number] Interpreted by: RAO CERVANTES MD Electronically signed by: Reviewed: Reviewed by Me Departure Impression Primary Impression: Sprain of right forearm Qualified Codes: S63.501A - Unspecified sprain of right wrist, initial encounter Disposition: 01 HOME, SELF-CARE Condition: Improved Departure-Patient Inst. Decision time for Depature: 11:45 [place]errals: [facility] [facility] [place] Primary Care Physician SILVER HAMILTON APRN (Family) Primary Care Physician Patient Instructions: Wrist Sprain (DC) Add. Discharge Instructions: Continue to wear your wrist. Keep your scheduled follow-up with Dr. Connor, and pain management per him. Ice to right arm 20 minutes every 2 hours. Activity as tolerated. Alternate between ibuprofen 600 mg and Tylenol 650 mg every 4 hours. Return to emergency department for new, urgent health care needs. All discharge instructions reviewed with patient and/or family. Voiced understanding. Copy Copies To 1: LEON CONNOR AMY ARNP Jan 31, 2019 11:31
--- NOTE | 2019-01-31 11:43 | Diagnostic Imaging Report ---
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 COMPARISON: 01/04/2019. TECHNIQUE: 2 radiographs of the right forearm dated 01/31/2019. FINDINGS: Plate and screw fixation of the distal radius is present without evidence of hardware complication. No new fracture or dislocation. No destructive osseous process. Carpal alignment is well maintained. Focal soft tissue prominence is identified medial to the proximal ulnar shaft, similar to the prior examination. IMPRESSION: Plate and screw fixation of the distal radius without evidence of hardware complication. No new acute osseous abnormality. Focal rounded soft tissue prominence medial to the proximal mid ulnar shaft overlying the subcutaneous tissues. This is of uncertain etiology though appears to have been present on prior imaging. Recommend direct visualization. Dictated by: Dictated on workstation # [id number]
[2019-01-31 12:00] VITALS: BP 123/98
== END 2019-01-31 12:01 | disposition home or self-care (01) ==
LOC: EDUNIT# 10:24 → ER 10:26
DX: S63.501A Unspecified sprain of right wrist, initial encounter (principal); J45.909 Unspecified asthma, uncomplicated; B19.20 Unspecified viral hepatitis C without hepatic coma; M79.7 Fibromyalgia; F32.9 Major depressive disorder, single episode, unspecified; F17.210 Nicotine dependence, cigarettes, uncomplicated; Z88.6 Allergy status to analgesic agent; Z87.19 Personal history of other diseases of the digestive system; X50.1XXA Overexertion from prolonged static or awkward postures, initial encounter
CPT/HCPCS: 73090

== ENCOUNTER 2019-02-18 16:15 | Emergency (ER) | payer SELFPAY ==
[~2019-02-18] VITALS: Ht 165.1 cm; Wt 56.7 kg
--- NOTE | 2019-02-18 17:13 | ED Upper Extremity ---
General Chief Complaint: Laceration Stated Complaint: R FINGER LAC Nursing Triage Note: PT STATES SHE WAS DOING DISHES AND CUT HER FINGER, RT 2ND DIGIT, APPROXIMATELY 1 CM, BLEEDING CONTROLLED, LAST TETANUS MAY HAVE BEEN A COUPLE WEEKS AGO WHEN SHE HAD SURGERY ON RT WRIST. Nursing Sepsis Screen: No Definite Risk Source: patient Exam Limitations: no limitations History of Present Illness Date Seen by Provider: Feb 18, 2019 Time Seen by Provider: 17:11 Onset: just prior to arrival Severity: moderate Pain/Injury Location: left 2nd finger Method of Injury: unknown Modifying Factors: Improves With Movement Allergies and Home Medications Allergies Coded Allergies: aspirin (Verified Adverse Reaction, Unknown, 09/02/18) WAS TOLD NOT TO TAKE IT AFTER HER TUBAL PREGANANCY Home Medications Fluoxetine HCl 20 Mg Capsule, 20 MG PO DAILY, (Reported) Hydrocodone/Acetaminophen 1 Each Tablet, 1 TAB PO Q4-6HR Prescribed by: LEON ENNIS on 01/16/19 1504 Patient Home Medication List Home Medication List Reviewed: Yes Review of Systems Constitutional: see HPI EENTM: see HPI Respiratory: no symptoms reported Cardiovascular: no symptoms reported Genitourinary: no symptoms reported Musculoskeletal: see HPI Skin: no symptoms reported Psychiatric/Neurological: No Symptoms Reported Past Sckwzlc-Toxhps-Syhqsw Hx Patient Social History Alcohol Use: Denies Use Recreational Drug Use: No (DENIES ON 02/18/19) Drug of Choice: hx 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 Smoking Status: Current Everyday Smoker Type Used: Cigarettes 2nd Hand Smoke Exposure: Yes Recent Foreign Travel: No Contact w/Someone Who Travel: No Recent Infectious Disease Expo: No Recent Hopitalizations: No Physical Abuse: No Sexual Abuse: No Seasonal Allergies Seasonal Allergies: Yes Past Medical History Surgeries: Yes (TUBAL PREG-TUBE REMOVED AND OOPHORECTOMY, RT WRIST) Section, Orthopedic Respiratory: Yes (CHILDHOOD ) Asthma Cardiac: No Neurological: No : No Last Menstrual Period: Jan 31, 2019 Female Reproductive Disorders: Denies Sexually Transmitted Disease: No HIV/AIDS: No Genitourinary: No Gastrointestinal: Yes (HEP C) Chronic Constipation, Chronic Diarrhea, Hepatitis, Gall Bladder Disease Musculoskeletal: Yes Fibromyalgia, Chronic Back Pain, Fractures Endocrine: No HEENT: No Loss of Vision: Denies Hearing Impairment: Denies Cancer: No Psychosocial: Yes Depression Integumentary: No Blood Disorders: No Adverse Reaction/Blood Tranf: No (N/A) Physical Exam Vital Signs Vital Signs - First Documented 02/18/19 16:45 Temp 98.3 Pulse 108 Resp 22 B/P (MAP) 114/76 (89) Pulse Ox 98 O2 Delivery Room Air Capillary Refill : Less Than 3 Seconds Height, Weight, BMI Height: 5'5.00" Weight: 125lbs. 0.0oz. 56.909553cr; 21.6 BMI Method:Stated General Appearance: WD/WN, no apparent distress HEENT: PERRL/EOMI, normal ENT inspection Respiratory: no respiratory distress, no accessory muscle use Shoulder: normal inspection, non-tender Elbow/Forearm: normal inspection, non-tender, Left Wrist: Yes normal inspection, Yes non-tender Hand: Left, laceration (skin avulsion to the pad of the middle phalanx left pointer finger) Neurologic/Psychiatric: alert, normal mood/affect, oriented x 3 Skin: normal color, warm/dry Progress/Results/Core Measures Results/Orders My Orders Orders - KAYLENE BOO APRN Urine Bedside (02/18/19 17:02) Alprazolam Tablet (Xanax Tablet) (02/18/19 17:15) Vital Signs/I&O 02/18/19 16:45 Temp 98.3 Pulse 108 Resp 22 B/P (MAP) 114/76 (89) Pulse Ox 98 O2 Delivery Room Air Blood Pressure Mean: 89 Departure Impression Primary Impression: Skin avulsion Disposition: 01 HOME, SELF-CARE Condition: Stable Departure-Patient Inst. Decision time for Depature: 17:13 Referrals: [facility] [place]) Primary Care Physician SILVER HAMILTON APRN (Family) Primary Care Physician Patient Instructions: SKIN AVULSION Add. Discharge Instructions: 1. Return to ER for any concerns 2. Follow-up with your doctor next week 3. Rule out glue to follow up on its own. Do not apply any petroleum-based products like triple antibiotic ointment as this will dissolve the glue. You may shower allowing water run over this gently but do not soak it in water such as a hot tub bath tub or swimming pool until the glue falls off on its own in 3-5 days. All discharge instructions reviewed with patient and/or family. Voiced understanding. KAYLENE BOO APRN Feb 18, 2019 17:13
[2019-02-18] MEDS ORDERED: ALPRAZolam 0.25 MG (XANAX) TAB PO ONE (17:15)
[2019-02-18 17:30] VITALS: BP 114/76
[2019-02-18] MEDS ORDERED: IBUPROFEN 800 MG (MOTRIN) TAB PO ONE (17:30)
== END 2019-02-18 17:30 | disposition home or self-care (01) ==
LOC: EDUNIT# 16:15 → ER 16:16
DX: S61.210A Laceration without foreign body of right index finger without damage to nail, initial encounter (principal); J45.909 Unspecified asthma, uncomplicated; B19.20 Unspecified viral hepatitis C without hepatic coma; M79.7 Fibromyalgia; F32.9 Major depressive disorder, single episode, unspecified; F17.210 Nicotine dependence, cigarettes, uncomplicated; Z88.6 Allergy status to analgesic agent; W26.8XXA Contact with other sharp object(s), not elsewhere classified, initial encounter
CPT/HCPCS: 12041

== ENCOUNTER 2019-03-20 13:34 | Emergency (ER) | payer SELFPAY ==
[~2019-03-20] VITALS: Ht 165.1 cm; Wt 56.7 kg
[2019-03-20 14:07] LABS: BASOPHILS % (AUTO) 0 % (0-10); EOSINOPHILS # (AUTO) 0.1 10^3/uL (0.0-0.3); EOSINOPHILS % (AUTO) 3 % (0-10); LYMPHOCYTES % (AUTO) 26 % (12-44); MEAN CORPUSCULAR HGB CONC 34 G/DL (32-36); MEAN CORPUSCULAR VOLUME 87 FL (80-99); MEAN PLATELET VOLUME 10.1 FL (7.4-10.4); MONOCYTES # (AUTO) 0.5 X 10^3 (0.0-1.0); MONOCYTES % (AUTO) 14 % (0-12); NEUTROPHILS # (AUTO) 2.3 X 10^3 (1.8-7.8); NEUTROPHILS % (AUTO) 57 % (42-75); RED CELL DISTRIBUTION WIDTH 13.5 % (10.0-14.5)
[2019-03-20 14:15] LABS: WHITE BLOOD COUNT 4.4 10^3/uL (4.3-11.0)
[2019-03-20 14:16] LABS: HEMATOCRIT 39 % (35-52); HEMOGLOBIN 12.8 G/DL (11.5-16.0); MEAN CORPUSCULAR HEMOGLOBIN 29 PG (25-34); PLATELET COUNT 178 10^3/uL (130-400)
[2019-03-20 14:26] LABS: ALANINE AMINOTRANSFERASE 63 U/L (0-55); ALKALINE PHOSPHATASE 74 U/L (40-136); AMYLASE 24 U/L (25-125); BILIRUBIN,TOTAL 0.3 MG/DL (0.1-1.0); BUN/CREATININE RATIO 9; CALCIUM 9.1 MG/DL (8.5-10.1); CARBON DIOXIDE 25 MMOL/L (21-32); CHLORIDE 105 MMOL/L (98-107); CREATININE SERUM 0.77 MG/DL (0.60-1.30); GFR ESTIMATED > 60; GLUCOSE 73 MG/DL (70-105); LIPASE 4 U/L (8-78); POTASSIUM 3.2 MMOL/L (3.6-5.0); SODIUM 139 MMOL/L (135-145); TOTAL PROTEIN 7.4 GM/DL (6.4-8.2)
[2019-03-20] MEDS ORDERED: ONDANSETRON 4 MG/2 ML (SDV) Z0FRAN IVP ONE (14:45)
[2019-03-20 14:48] LABS: BILIRUBIN,URINE NEGATIVE (NEGATIVE); CLARITY,URINE CLEAR; COLOR,URINE YELLOW; GLUCOSE, URINE (UA) NEGATIVE (NEGATIVE); KETONES,URINE NEGATIVE (NEGATIVE); LEUKOCYTE ESTERASE ,URINE NEGATIVE (NEGATIVE); NITRITE,URINE NEGATIVE (NEGATIVE); PH,URINE 8 (5-9); PROTEIN,URINE NEGATIVE (NEGATIVE); UROBILINOGEN,URINE NORMAL (NORMAL)
[2019-03-20 14:51] LABS: HCG,QUALITATIVE URINE NEGATIVE (NEGATIVE)
[2019-03-20 14:58] LABS: BACTERIA,URINE FEW /HPF; WBC,URINE RARE /HPF
[2019-03-20 15:08] LABS: AMPHETAMINE SCREEN, URINE NEGATIVE (NEGATIVE); BARBITURATE SCREEN URINE NEGATIVE (NEGATIVE); BENZODIAZEPINES SCREEN URINE NEGATIVE (NEGATIVE); CANNABINOID SCREEN, URINE NEGATIVE (NEGATIVE); COCAINE SCREEN URINE NEGATIVE (NEGATIVE); METHADONE STAT NEGATIVE (NEGATIVE); METHAMPHETAMINE SCREEN URINE S NEGATIVE (NEGATIVE); OPIATE SCREEN URINE NEGATIVE (NEGATIVE); OXYCODONE STAT NEGATIVE (NEGATIVE); PROPOXYPHENE STAT NEGATIVE (NEGATIVE); TRICYCLIC ANTIDEPRESSANTS SCRE NEGATIVE (NEGATIVE)
[2019-03-20] MEDS ORDERED: ONDN4T PO (15:18)
[2019-03-20] MEDS ORDERED: HYOS0.1283 SL (15:18)
--- NOTE | 2019-03-20 15:18 | ED Abdominal Pain ---
General Chief Complaint: Abdominal/GI Problems Stated Complaint: N/V/D Nursing Triage Note: pt started having n/v/d last night. Pt states that the pain in mid abd. Pt states that she is unable to hold her head up Sepsis Screen: No Definite Risk Source of Information: Patient Exam Limitations: No Limitations History of Present Illness Date Seen by Provider: Mar 20, 2019 Time Seen by Provider: 13:40 Allergies and Home Medications Allergies Coded Allergies: aspirin (Verified Adverse Reaction, Unknown, 09/02/18) WAS TOLD NOT TO TAKE IT AFTER HER TUBAL PREGANANCY Home Medications Fluoxetine HCl 20 Mg Capsule, 20 MG PO DAILY, (Reported) Hydrocodone/Acetaminophen 1 Each Tablet, 1 TAB PO Q4-6HR Prescribed by: LEON ENNIS on 01/16/19 1504 Past Fowiffb-Ddmrrs-Odifvn Hx Patient Social History Alcohol Use: Denies Use Recreational Drug Use: No Drug of Choice: hx 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 Smoking Status: Current Everyday Smoker Type Used: Cigarettes 2nd Hand Smoke Exposure: Yes Recent Foreign Travel: No Contact w/Someone Who Travel: No Recent Infectious Disease Expo: No Recent Hopitalizations: No Seasonal Allergies Seasonal Allergies: Yes Past Medical History Surgeries: Yes (TUBAL PREG-TUBE REMOVED AND OOPHORECTOMY, RT WRIST) Section, Orthopedic Respiratory: Yes (CHILDHOOD ) Asthma Cardiac: No Neurological: No Female Reproductive Disorders: Denies Sexually Transmitted Disease: No HIV/AIDS: No Genitourinary: No Gastrointestinal: Yes (HEP C) Chronic Constipation, Chronic Diarrhea, Hepatitis, Gall Bladder Disease Musculoskeletal: Yes Fibromyalgia, Chronic Back Pain, Fractures Endocrine: No HEENT: No Loss of Vision: Denies Hearing Impairment: Denies Cancer: No Psychosocial: Yes Depression Integumentary: No Blood Disorders: No Adverse Reaction/Blood Tranf: No (N/A) Physical Exam Vital Signs Vital Signs - First Documented 03/20/19 13:40 Temp 96.5 Pulse 100 Resp 20 B/P (MAP) 126/88 (101) Pulse Ox 98 O2 Delivery Room Air Capillary Refill : Less Than 3 Seconds Height/Weight/BMI Height: 5'5.00" Weight: 125lbs. 0.0oz. [id number]; 21.6 BMI Method:Stated Progress/Results/Core Measures Results/Orders Lab Results Laboratory Tests Test 03/20/19 14:00 03/20/19 14:40 Range/Units White Blood Count 4.4 4.3-11.0 10^3/uL Red Blood Count 4.38 4.35-5.85 10^6/uL Hemoglobin 12.8 11.5-16.0 G/DL Hematocrit 39 35-52 % Mean Corpuscular Volume 87 80-99 FL Mean Corpuscular Hemoglobin 29 25-34 PG Mean Corpuscular Hemoglobin Concent 34 32-36 G/DL Red Cell Distribution Width 13.5 10.0-14.5 % Platelet Count 178 130-400 10^3/uL Mean Platelet Volume 10.1 7.4-10.4 FL Neutrophils (%) (Auto) 57 42-75 % Lymphocytes (%) (Auto) 26 12-44 % Monocytes (%) (Auto) 14 H 0-12 % Eosinophils (%) (Auto) 3 0-10 % Basophils (%) (Auto) 0 0-10 % Neutrophils # (Auto) 2.3 1.8-7.8 X 10^3 Lymphocytes # (Auto) 1.0 1.0-4.0 X 10^3 Monocytes # (Auto) 0.5 0.0-1.0 X 10^3 Eosinophils # (Auto) 0.1 0.0-0.3 10^3/uL Basophils # (Auto) 0.0 0.0-0.1 10^3/uL Sodium Level 139 135-145 MMOL/L Potassium Level 3.2 L 3.6-5.0 MMOL/L Chloride Level 105 98-107 MMOL/L Carbon Dioxide Level 25 21-32 MMOL/L Anion Gap 9 5-14 MMOL/L Blood Urea Nitrogen 7 7-18 MG/DL Creatinine 0.77 0.60-1.30 MG/DL Estimat Glomerular Filtration Rate > 60 BUN/Creatinine Ratio 9 Glucose Level 73 70-105 MG/DL Calcium Level 9.1 8.5-10.1 MG/DL Corrected Calcium 9.1 8.5-10.1 MG/DL Total Bilirubin 0.3 0.1-1.0 MG/DL Aspartate Amino Transf (AST/SGOT) 52 H 5-34 U/L Alanine Aminotransferase (ALT/SGPT) 63 H 0-55 U/L Alkaline Phosphatase 74 40-136 U/L Total Protein 7.4 6.4-8.2 GM/DL Albumin 4.0 3.2-4.5 GM/DL Amylase Level 24 L 25-125 U/L Lipase 4 L 8-78 U/L Urine Color YELLOW Urine Clarity CLEAR Urine pH 8 5-9 Urine Specific [place] 1.010 L 1.016-1.022 Urine Protein NEGATIVE NEGATIVE Urine Glucose (UA) NEGATIVE NEGATIVE Urine Ketones NEGATIVE NEGATIVE Urine Nitrite NEGATIVE NEGATIVE Urine Bilirubin NEGATIVE NEGATIVE Urine Urobilinogen NORMAL NORMAL MG/DL Urine Leukocyte Esterase NEGATIVE NEGATIVE Urine RBC (Auto) NEGATIVE NEGATIVE Urine RBC NONE /HPF Urine WBC RARE /HPF Urine Squamous Epithelial Cells 5-10 /HPF Urine Crystals NONE /LPF Urine Bacteria FEW H /HPF Urine Casts NONE /LPF Urine Mucus NEGATIVE /LPF Urine Culture Indicated NO Urine Test NEGATIVE NEGATIVE Urine Opiates Screen NEGATIVE NEGATIVE Urine Oxycodone Screen NEGATIVE NEGATIVE Urine Methadone Screen NEGATIVE NEGATIVE Urine Propoxyphene Screen NEGATIVE NEGATIVE Urine Barbiturates Screen NEGATIVE NEGATIVE Ur Tricyclic Antidepressants Screen NEGATIVE NEGATIVE Urine Phencyclidine Screen NEGATIVE NEGATIVE Urine Amphetamines Screen NEGATIVE NEGATIVE Urine Methamphetamines Screen NEGATIVE NEGATIVE Urine Benzodiazepines Screen NEGATIVE NEGATIVE Urine Cocaine Screen NEGATIVE NEGATIVE Urine Cannabinoids Screen NEGATIVE NEGATIVE My Orders Orders - FRED CARMONA Comprehensive Metabolic Panel (03/20/19 13:40) Lipase (03/20/19 13:40) Amylase (03/20/19 13:40) Ua Culture If Indicated (03/20/19 13:40) Ed Iv/Invasive Line Start (03/20/19 13:40) Cbc With Automated Diff (03/20/19 13:40) Hcg,Qualitative Urine (03/20/19 13:40) Drug Screen Stat (Urine) (03/20/19 13:40) Ondansetron Injection (Zofran Injectio (03/20/19 14:45) Vital Signs/I&O 03/20/19 13:40 Temp 96.5 Pulse 100 Resp 20 B/P (MAP) 126/88 (101) Pulse Ox 98 O2 Delivery Room Air Blood Pressure Mean: 101 Departure Impression Primary Impression: Nausea vomiting and diarrhea Disposition: 01 HOME, SELF-CARE Condition: Stable/Unchanged Departure-Patient Inst. Decision time for Depature: 15:17 Referrals: [facility] (PCP) Primary Care Physician SILVER HAMILTON APRN (Family) Primary Care Physician Patient Instructions: Viral Gastroenteritis, Adult (DC) Add. Discharge Instructions: You may use [id number] antidiarrheals as directed by the packaging. Take medications as directed. Drink plenty of fluids to stay hydrated. Follow-up with your primary care provider within 1 week for recheck. Return back to the emergency room for worsening symptoms or concerns as needed. All discharge instructions reviewed with patient and/or family. Voiced understanding. Scripts Ondansetron HCl (Zofran) 4 Mg Tab 4 MG PO Q4H PRN for NAUSEA/VOMITING-1ST LINE, #14 TAB Prov: FRED CARMONA 03/20/19 Hyoscyamine Sulfate (Levsin-Sl) 0.125 Mg Tab.subl 0.125 MG SL Q4H PRN for CRAMPS, #10 TAB 0 Refills Prov: FRED CARMONA 03/20/19 Work/School Note: Work Release Form Date Seen in the Emergency Department: Mar 20, 2019 Return to Work: Mar 22, 2019 Restrictions: No Restrictions FRED CARMONA Mar 20, 2019 15:18
[2019-03-20 15:29] VITALS: BP 143/72
[2019-03-20] MEDS ORDERED: NS IV 1000 ML 1,000 ML IV SCH (15:30)
== END 2019-03-20 15:29 | disposition home or self-care (01) ==
LOC: EDUNIT# 13:34 → ER 13:35
DX: R11.2 Nausea with vomiting, unspecified (principal); R19.7 Diarrhea, unspecified; J45.909 Unspecified asthma, uncomplicated; B19.20 Unspecified viral hepatitis C without hepatic coma; M79.7 Fibromyalgia; F32.9 Major depressive disorder, single episode, unspecified; F17.210 Nicotine dependence, cigarettes, uncomplicated; Z87.19 Personal history of other diseases of the digestive system; Z88.6 Allergy status to analgesic agent; Z98.51 Tubal ligation status
CPT/HCPCS: 36415; 80053; 80306; 81000; 82150; 83690; 84703; 85025

== ENCOUNTER 2019-07-17 19:19 | Emergency (ER) | payer SELFPAY ==
[~2019-07-17] VITALS: Ht 165.1 cm; Wt 56.8 kg
[~2019-07-17 19:19] MED LIST changes: +HYOS0.1283 SL; +ONDN4T PO
[2019-07-17] MEDS ORDERED: AMOX-358 PO (19:57)
--- NOTE | 2019-07-17 19:57 | ED EENT ---
History of Present Illness General Stated Complaint: BIALT EAR PAIN/HARD TO HEAR/ COUGH Source: patient Exam Limitations: no limitations History of Present Illness Date Seen by Provider: Jul 17, 2019 Time Seen by Provider: 19:55 Initial Comments 34-year-old female who presents to emergency room with complaints of left ear pain for the past 3 days and a cough for the past 2 weeks. She denies fevers. She reports that her hearing is muffled. Reports the left ear is worse than the right. Allergies and Home Medications Allergies Coded Allergies: aspirin (Verified Adverse Reaction, Unknown, 09/02/18) WAS TOLD NOT TO TAKE IT AFTER HER TUBAL PREGANANCY Home Medications Amoxicillin/Potassium Clav 1 Each Tablet, 1 EACH PO BID Prescribed by: FRED CARMONA on 07/17/191956 Fluoxetine HCl 20 Mg Capsule, 20 MG PO DAILY, (Reported) Hydrocodone/Acetaminophen 1 Each Tablet, 1 TAB PO Q4-6HR Prescribed by: LEON ENNIS on 01/16/19 1504 Hyoscyamine Sulfate 0.125 Mg Tab.subl, 0.125 MG SL Q4H PRN for CRAMPS Prescribed by: FRED CARMONA on 03/20/19 1518 Ondansetron HCl 4 Mg Tab, 4 MG PO Q4H PRN for NAUSEA/VOMITING-1ST LINE Prescribed by: FRED CARMONA on 03/20/19 1518 Patient Home Medication List Home Medication List Reviewed: Yes Review of Systems Review of Systems Constitutional: see HPI; No chills, No fever Ears: See HPI, Pain (left ear pain) All Other Systems Reviewed Negative Unless Noted: Yes Past Bjnehqt-Minyos-Zvffge Hx Past Med/Social Hx: Reviewed Nursing Past Med/Soc Hx Patient Social History Drug of Choice: hx 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 Type Used: Cigarettes 2nd Hand Smoke Exposure: Yes Recent Foreign Travel: No Contact w/Someone Who Travel: No Recent Hopitalizations: No Seasonal Allergies Seasonal Allergies: Yes Past Medical History Surgeries: Yes (TUBAL PREG-TUBE REMOVED AND OOPHORECTOMY, RT WRIST) Section, Orthopedic Respiratory: Yes (CHILDHOOD ) Asthma Cardiac: No Neurological: No Female Reproductive Disorders: Denies Sexually Transmitted Disease: No HIV/AIDS: No Genitourinary: No Gastrointestinal: Yes (HEP C) Chronic Constipation, Chronic Diarrhea, Hepatitis, Gall Bladder Disease Musculoskeletal: Yes Fibromyalgia, Chronic Back Pain, Fractures Endocrine: No HEENT: No Loss of Vision: Denies Hearing Impairment: Denies Cancer: No Psychosocial: Yes Depression Integumentary: No Blood Disorders: No Adverse Reaction/Blood Tranf: No (N/A) Family Medical History Reviewed Nursing Family Hx Physical Exam Vital Signs Vital Signs - First Documented 07/17/19 07/17/19 19:24 20:21 Temp 36.8 Pulse 125 Resp 18 B/P (MAP) 135/64 (87) Pulse Ox 98 Height, Weight, BMI Height: 5'5.00" Weight: 125lbs. 0.0oz. 56.643134af; 21.6 BMI Method:Stated General Appearance: WD/WN, no apparent distress Ears: left ear TM red, left ear TM bulging Cardiovascular: normal peripheral pulses, regular rate, rhythm, no edema, no gallop, no JVD, no murmur Respiratory: chest non-tender, lungs clear, normal breath sounds, no respiratory distress, no accessory muscle use Neurologic/Psychiatric: alert, normal mood/affect, oriented x 3 Skin: normal color, warm/dry Departure Impression Primary Impression: Left otitis media Disposition: 01 HOME, SELF-CARE Condition: Stable/Unchanged Departure-Patient Inst. Decision time for Depature: 19:56 Referrals: [facility] [place] (PCP) Primary Care Physician SILVER HAMILTON APRN (Family) Primary Care Physician Patient Instructions: Ear Infections (Otitis Media) Add. Discharge Instructions: Take medications as directed. You may use cmmz-ssf-[id number] cold cough flu medications for your cough. Take a daily decongestant during her illness. Follow-up with her primary care provider within 1 week for recheck. Return back to the emergency room for worsening symptoms or concerns as needed. Scripts Amoxicillin/Potassium Clav (Augmentin 875-125 Tablet) 1 Each Tablet 1 EACH PO BID, #14 TAB 0 Refills Prov: FRED CARMONA 07/17/19 Work/School Note: Work Release Form Date Seen in the Emergency Department: Jul 17, 2019 Return to Work: Jul 18, 2019 Restrictions: No Restrictions FRED CARMONA Jul 17, 2019 19:57 POS
[2019-07-17 20:21] VITALS: BP 135/64
== END 2019-07-17 20:21 | disposition home or self-care (01) ==
LOC: EDUNIT# 19:19 → ER 19:20
DX: H66.92 Otitis media, unspecified, left ear (principal); J45.909 Unspecified asthma, uncomplicated; B19.20 Unspecified viral hepatitis C without hepatic coma; M79.7 Fibromyalgia; F32.9 Major depressive disorder, single episode, unspecified; Z79.82 Long term (current) use of aspirin; Z77.22 Contact with and (suspected) exposure to environmental tobacco smoke (acute) (chronic)
CPT/HCPCS: 99282

== ENCOUNTER 2021-03-30 01:08 | Emergency (ER) | payer MEDICAID ==
[~2021-03-30] VITALS: Ht 165.1 cm; Wt 49.9 kg
[~2021-03-30 01:08] MED LIST changes: +AMOX-358 PO; -SULF1TAB35 PO; +SULF1TAB38 PO
--- NOTE | 2021-03-30 01:42 | ED GI ---
General Stated Complaint: BLOOD CLOTTS FROM RECTUM Source of Information: Patient Exam Limitations: No Limitations History of Present Illness Date Seen by Provider: Mar 30, 2021 Time Seen by Provider: 01:28 Initial Comments Patient is a 35-year-old female who presents to the emergency department today with a chief complaint of bloody stools. Patient states that at about 10:00 yesterday evening she had sharp pain in her right lower quadrant and shortly after that started passing blood in her stools. She denies any rectal trauma. Patient states that she has had a history of bloody stools in the past. Per review of the medical record the patient saw Dr. Portillo in 2019 and had a colonoscopy where she was found to have a rectal polyp and some hemorrhoids. Rest of her colonoscopy was reviewed and was normal. Patient states that she has hepatitis C and she is concerned that it might be related. She states she feels often that she has to "strain" with bowel movements but she does not feel constipated. She also states that when she wipes the stool "looks like jelly". She denies any fevers or chills or nausea or vomiting. She is not lightheaded or dizzy with standing. She states her periods are irregular and she has them every 3 months. She is not on any daily medications. She does smoke. She has been taking some Aleve for the last couple of days but only 2 pills a day. No other complaints of illness or injury. All other review of systems reviewed and negative except as stated above. Timing/Duration: 24 Hours Severity/Quality: Moderate Activities at Onset: None Associated Symptoms: Denies Symptoms Allergies and Home Medications Allergies Coded Allergies: aspirin (Verified Adverse Reaction, Unknown, 09/02/18) WAS TOLD NOT TO TAKE IT AFTER HER TUBAL PREGANANCY Home Medications Amoxicillin/Potassium Clav 1 Each Tablet, 1 EACH PO BID Prescribed by: FRED CARMONA on 07/17/191956 Fluoxetine HCl 20 Mg Capsule, 20 MG PO DAILY, (Reported) Hydrocodone/Acetaminophen 1 Each Tablet, 1 TAB PO Q4-6HR Prescribed by: LEON ENNIS on 01/16/19 1504 Hyoscyamine Sulfate 0.125 Mg Tab.subl, 0.125 MG SL Q4H PRN for CRAMPS Prescribed by: FRED CARMONA on 03/20/19 1518 Ondansetron HCl 4 Mg Tab, 4 MG PO Q4H PRN for NAUSEA/VOMITING-1ST LINE Prescribed by: FRED CARMONA on 03/20/19 9828 Patient Home Medication List Home Medication List Reviewed: Yes Review of Systems Review of Systems Constitutional: see HPI EENTM: No Symptoms Reported Respiratory: No Symptoms Reported Cardiovascular: No Symptoms Reported Gastrointestinal: Other (Blood clots per rectum) Genitourinary: No Symptoms Reported Musculoskeletal: no symptoms reported Skin: no symptoms reported All Other Systems Reviewed Negative Unless Noted: Yes Past Pdpnvqs-Gfqzck-Loawva Hx Seasonal Allergies Seasonal Allergies: Yes Past Medical History Surgeries: Yes (TUBAL PREG-TUBE REMOVED AND OOPHORECTOMY, RT WRIST) Section, Orthopedic Respiratory: Yes (CHILDHOOD ) Asthma Cardiac: No Neurological: No Female Reproductive Disorders: Denies Sexually Transmitted Disease: No HIV/AIDS: No Genitourinary: No Gastrointestinal: Yes (HEP C) Chronic Constipation, Chronic Diarrhea, Hepatitis, Gall Bladder Disease Musculoskeletal: Yes Fibromyalgia, Chronic Back Pain, Fractures Endocrine: No HEENT: No Loss of Vision: Denies Hearing Impairment: Denies Cancer: No Psychosocial: Yes Depression Integumentary: No Blood Disorders: No Adverse Reaction/Blood Tranf: No (N/A) Physical Exam Vital Signs Capillary Refill : Height/Weight/BMI Height: 5'5.00" Weight: 125lbs. 0.0oz. 56.387689uw; 20.00 BMI Method:Stated General Appearance: WD/WN, no apparent distress HEENT: PERRL/EOMI Respiratory: lungs clear, normal breath sounds, no respiratory distress, no accessory muscle use Cardiovascular: regular rate, rhythm, tachycardia Gastrointestinal: normal bowel sounds, non tender, soft Rectal: normal exam (Small external hemorrhoid at the 12 o'clock position. Possibly some soft internal hemorrhoids are palpated in the rectal vault. The patient does have maroon blood in the rectal vault), tenderness (Mild tenderness) Extremities: normal range of motion, normal inspection Neurologic/Psychiatric: alert, normal mood/affect, oriented x 3 Skin: normal color, warm/dry Progress/Results/Core Measures Results/Orders My Orders Orders - CAMPBELL RECINOS MD Ed Iv/Invasive Line Start (03/30/21 01:20) Cbc With Automated Diff (03/30/21 01:20) Comprehensive Metabolic Panel (03/30/21 01:20) Fecal Occult Bedside (03/30/21 01:22) Hcg,Qualitative Serum (03/30/21 01:43) Progress Progress Note : Time: 01:42 Progress Note Fecal occult blood test initially ordered at the bedside however she is grossly positive on digital rectal exam 0219 patient had several attempts at blood draw by nursing as well as phlebotomy. there were unable to get blood and the patient became upset and left the ER AMA Departure Impression Primary Impression: Hematochezia Disposition: 07 AGAINST MEDICAL ADVICE Condition: Against Medical Advice Departure-Patient Inst. Referrals: [facility] [place] (PCP) Primary Care Physician SILVER HAMILTON APRN (Family) Primary Care Physician JOSHUA PORTILLO KATHRYN M MD Mar 30, 2021 01:42
[2021-03-30 02:17] VITALS: BP 133/86
== END 2021-03-30 02:17 | disposition left against medical advice (07) ==
LOC: EDUNIT# 01:08 → ER 01:12
DX: K92.1 Melena (principal); J45.909 Unspecified asthma, uncomplicated; F32.9 Major depressive disorder, single episode, unspecified; G89.29 Other chronic pain; Z79.899 Other long term (current) drug therapy; M54.9 Dorsalgia, unspecified; F17.290 Nicotine dependence, other tobacco product, uncomplicated; Z79.891 Long term (current) use of opiate analgesic
CPT/HCPCS: 82274

== ENCOUNTER 2021-04-28 20:07 | Emergency (ER) | payer MEDICAID ==
[~2021-04-28] VITALS: Ht 165.1 cm; Wt 49.9 kg
[2021-04-28] MEDS ORDERED: KETOROLAC 60 MG/2 ML VIAL IM ONE (20:15)
[2021-04-28] MEDS ORDERED: ORPHENADRINE 60 MG/2 ML (NORFLEX) AMP (ED ONLY) IM ONE (20:15)
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
--- NOTE | 2021-04-28 20:46 | Diagnostic Imaging Report ---
CLINICAL HISTORY: Left shoulder pain for one month. COMPARISON: None. TECHNIQUE: Three views of the left shoulder. FINDINGS: There is no acute fracture or dislocation of the left shoulder. Alignment is anatomic. The imaged joint spaces are preserved. The included left chest is clear. IMPRESSION: No acute fracture or dislocation in the left shoulder. Dictated by: Dictated on workstation # [id number]
[2021-04-28 21:16] VITALS: BP 109/85
== END 2021-04-28 21:16 | disposition home or self-care (01) ==
LOC: EDUNIT# 20:07 → ER 20:08
DX: M25.512 Pain in left shoulder (principal); J45.909 Unspecified asthma, uncomplicated; F32.9 Major depressive disorder, single episode, unspecified; G89.29 Other chronic pain; M54.9 Dorsalgia, unspecified; Z79.891 Long term (current) use of opiate analgesic; Z79.899 Other long term (current) drug therapy
CPT/HCPCS: 73030

== ENCOUNTER 2021-07-14 14:39 | Emergency (ER) | payer MEDICAID ==
[~2021-07-14] VITALS: Ht 165.1 cm; Wt 50.8 kg
--- NOTE | 2021-07-14 15:09 | ED GI ---
General Stated Complaint: COUGH,DIARRHEA Source of Information: Patient Exam Limitations: No Limitations History of Present Illness Date Seen by Provider: Jul 14, 2021 Time Seen by Provider: 14:41 Initial Comments 36-year-old female with past medical history of hepatitis coming in due to 1 episode of nonbloody nonbilious emesis as well as several episodes of nonbloody diarrhea today. Cough started yesterday as well. As far she knows she is not been around anybody sick. Has had chills but no fever that she knows of. Denies ever having COVID or being vaccinated for it. Denies any chest pain, shortness of breath, abdominal pain, weakness, numbness, rash, or any other concerns. Allergies and Home Medications Allergies Coded Allergies: aspirin (Verified Adverse Reaction, Unknown, 09/02/18) WAS TOLD NOT TO TAKE IT AFTER HER TUBAL PREGANANCY Patient Home Medication List Home Medication List Reviewed: Yes Amoxicillin/Potassium Clav (Augmentin 875-125 Tablet) 1 Each Tablet, 1 EACH PO BID Prescribed by: FRED CARMONA on 07/17/191956 Fluoxetine HCl (Prozac) 20 Mg Capsule, 20 MG PO DAILY, (Reported) Entered as Reported by: SILVER SELLERS on 01/15/19 1425 Hydrocodone/Acetaminophen (Hydrocodone/Acetaminophen 5 MG/325 MG TAB) 1 Each Tablet, 1 TAB PO Q4-6HR Prescribed by: LEON ENNIS on 01/16/19 1504 Hyoscyamine Sulfate (Levsin-Sl) 0.125 Mg Tab.subl, 0.125 MG SL Q4H PRN for CRAMPS Prescribed by: FRED CARMONA on 03/20/19 1518 Ondansetron HCl (Zofran) 4 Mg Tab, 4 MG PO Q4H PRN for NAUSEA/VOMITING-1ST LINE Prescribed by: FRED CARMONA on 03/20/19 1518 Review of Systems Review of Systems Constitutional: chills; No fever EENTM: No Blurred Vision Respiratory: Cough; Denies Shortness of Air Cardiovascular: Denies Chest Pain Gastrointestinal: Denies Abdominal Pain; Diarrhea, Nausea, Vomiting Genitourinary: Denies Burning Musculoskeletal: no symptoms reported Skin: no symptoms reported Psychiatric/Neurological: No Symptoms Reported Endocrine: No Symptoms Reported Hematologic/Lymphatic: No Symptoms Reported All Other Systems Reviewed Negative Unless Noted: Yes Past Xyrjvos-Aqfkyq-Nekakf Hx Patient Social History Tobacco Use?: Yes Substance use?: No Alcohol Use?: Yes Seasonal Allergies Seasonal Allergies: Yes Past Medical History Surgeries: Yes (TUBAL PREG-TUBE REMOVED AND OOPHORECTOMY, RT WRIST) Section, Orthopedic Respiratory: Yes (CHILDHOOD ) Asthma Cardiac: No Neurological: No Female Reproductive Disorders: Denies Sexually Transmitted Disease: No HIV/AIDS: No Genitourinary: No Gastrointestinal: Yes (HEP C) Chronic Constipation, Chronic Diarrhea, Hepatitis, Gall Bladder Disease Musculoskeletal: Yes Fibromyalgia, Chronic Back Pain, Fractures Endocrine: No HEENT: No Loss of Vision: Denies Hearing Impairment: Denies Cancer: No Psychosocial: Yes Depression Integumentary: No Blood Disorders: No Adverse Reaction/Blood Tranf: No (N/A) Physical Exam Vital Signs Vital Signs - First Documented 07/14/21 14:55 Temp 36.8 Pulse 80 Resp 18 B/P (MAP) 108/83 (91) Pulse Ox 97 O2 Delivery Room Air Capillary Refill : Height/Weight/BMI Height: 5'5.00" Weight: 125lbs. 0.0oz. [age]yo; 18.00 BMI Method:Stated General Appearance: WD/WN, no apparent distress HEENT: PERRL/EOMI, normal ENT inspection, pharynx normal Neck: non-tender, full range of motion, supple, normal inspection Respiratory: chest non-tender, lungs clear, normal breath sounds, no respiratory distress, no accessory muscle use Cardiovascular: regular rate, rhythm, no edema, no murmur Gastrointestinal: normal bowel sounds, non tender, soft; No distended, No guarding, No rebound Extremities: normal range of motion, non-tender, normal inspection, no pedal edema, no calf tenderness, normal capillary refill Back: normal inspection, no CVA tenderness, no vertebral tenderness Neurologic/Psychiatric: no motor/sensory deficits, alert, normal mood/affect Skin: normal color, warm/dry Lymphatic: no adenopathy Progress/Results/Core Measures Results/Orders Lab Results Laboratory Tests Test 07/14/21 15:00 Range/Units Influenza Type A (RT-PCR) Not Detected Not Detecte Influenza Type B (RT-PCR) Not Detected Not Detecte SARS-CoV-2 RNA (RT-PCR) Not Detected Not Detecte My Orders Orders - ZHOU ALBRIGHT MD Influenza A And B By Pcr (07/14/21 15:04) Covid 19 Inhouse Test (07/14/21 15:04) Ua Culture If Indicated (07/14/21 15:04) Acetaminophen Tablet (Tylenol Tablet) (07/14/21 15:15) Ondansetron Oral Dissolve Tab (Zofran (07/14/21 15:15) Medications Given in ED Current Medications Medications Dose Ordered Sig/Leah Route Start Time Stop Time Status Last Admin Dose Admin Acetaminophen 1,000 mg ONCE ONCE PO 07/14/21 15:15 07/14/21 15:16 DC 07/14/21 15:12 1,000 MG Ondansetron HCl 4 mg ONCE ONCE PO 07/14/21 15:15 07/14/21 15:16 DC 07/14/21 15:12 4 MG Vital Signs/I&O 07/14/21 14:55 Temp 36.8 Pulse 80 Resp 18 B/P (MAP) 108/83 (91) Pulse Ox 97 O2 Delivery Room Air Progress Progress Note : Progress Note 36-year-old female with above history coming in due to 1 episode of vomiting and a couple episodes of diarrhea. ABCs were intact and vitals were stable on presentation. Physical exam reassuring with a soft and nontender abdomen. COVID and influenza tested while here. She was given oral Zofran as well as oral Tylenol for her chills as well as nausea. The patient was able to drink a full cup of water with the medications and tolerated that without repeat vomiting. Covid testing and flu testing was negative. The patient is suspicious that she could have some type of foodborne illness because she said she ate old frozen pizza last night. Overall, her vitals remained stable and she is well-appearing. I have a very low suspicion for any more significant illness, and her abdominal exam once again is reassuring on reassessment. The patient was then discharged home in stable condition with strict return precautions Departure Impression Primary Impression: Vomiting Qualified Codes: R11.2 - Nausea with vomiting, unspecified Additional Impression: Diarrhea Qualified Codes: R19.7 - Diarrhea, unspecified Disposition: 01 HOME, SELF-CARE Condition: Improved Departure-Patient Inst. Decision time for Depature: 15:54 Referrals: [facility] [place] Primary Care Physician SILVER HAMILTON APRN (Family) Primary Care Physician Patient Instructions: Nausea and Vomiting, Adult ED Add. Discharge Instructions: You were seen in the emergency department for vomiting and diarrhea. Fortunately, your Covid test and flu testing were negative. There are many other viruses that can cause symptoms that you have. Most importantly, if you develop any bright red blood coming from your diarrhea, bright red blood coming in your vomit that is more than just some streaks, begin developing severe abdominal pain, or have any other concerns then you should come back to the ER. I sent nausea medications to your pharmacy. Continue to take small frequent sips of fluids, it is okay to not want to eat when you feel sick like this. If the diarrhea becomes persistent it is okay to take Lomotil to slow it down. Scripts Ondansetron (Ondansetron Odt) 4 Mg Tab.rapdis 4 MG PO Q6H PRN for NAUSEA/VOMITING-1ST LINE for 5 Days, #20 TAB Prov: ZHOU ALBRIGHT MD 07/14/21 Work/School Note: Work Release Form Date Seen in the Emergency Department: D 2020 Return to Work: Jul 15, 2021 Restrictions: Return-No Fever (24hrs) ZHOU ALBRIGHT MD Jul 14, 2021 15:09
[2021-07-14] MEDS ORDERED: ACETAMINOPHEN 500 MG TAB (TYLENOL) PO ONE (15:15)
[2021-07-14] MEDS ORDERED: ONDANSETRON 4 MG (ZOFRAN) ORAL DISSOLVE TAB PO ONE (15:15)
[2021-07-14] MEDS ORDERED: ONDA4TAB11 PO (15:56)
[2021-07-14 15:58] VITALS: BP 108/83
== END 2021-07-14 16:06 | disposition home or self-care (01) ==
LOC: EDUNIT# 14:39 → ER 14:41
DX: R11.10 Vomiting, unspecified (principal); R19.7 Diarrhea, unspecified; J45.909 Unspecified asthma, uncomplicated; F32.9 Major depressive disorder, single episode, unspecified; G89.29 Other chronic pain; M54.9 Dorsalgia, unspecified; Z72.0 Tobacco use; Z20.822 Contact with and (suspected) exposure to COVID-19; Z79.899 Other long term (current) drug therapy; Z79.891 Long term (current) use of opiate analgesic
CPT/HCPCS: 87636; 99283

== ENCOUNTER 2022-05-15 23:20 | Emergency (ER) | payer MEDICAID ==
[~2022-05-15] VITALS: Ht 165.1 cm; Wt 47.2 kg
[~2022-05-15 23:20] MED LIST changes: +ONDA4TAB11 PO
[2022-05-15 23:30] VITALS: BP 128/93
[2022-05-15] MEDS ORDERED: CYCL10TA25 PO (23:49)
[2022-05-15] MEDS ORDERED: NAPR500T8 PO (23:49)
--- NOTE | 2022-05-15 23:49 | ED Headache ---
General Chief Complaint: Head/Cervical Problems Stated Complaint: FIGUEREDO Nursing Triage Note: PT AMB TO FT 1 W C/O RIGHT EAR PAIN AND HEADACHE SX 1200 TODAY. PT A&OX4. Source: patient History of Present Illness Date Seen by Provider: May 15, 2022 Time Seen by Provider: 23:35 Initial Comments PT ARRIVES VIA POV FROM HOME WITH MALE S.O. C/O RIGHT SIDED "TENSION HEADACHE" SINCE NOON PAIN COMES AND GOES, AND IS WORSE WHEN SHE RUBS THE AREA PAIN IS ALSO TO HER RIGHT EXTERNAL EAR. NO CHANGES IN HEARING, NO DRAINAGE FROM EAR. NO PAIN FROM INSIDE THE EAR NO PARESTHESIAS OR MOTOR DEFICITS NO NECK PAIN OR STIFFNESS NO FEVER OR RECENT ILLNESS NO NAUSEA/VOMITING NO VISION CHANGES NO DIZZINESS NO INJURY TO THE AREA HAS NOT TAKEN ANYTHING FOR SYMPTOMS HAS HAD SIMILAR HEADACHES IN THE PAST PT IS CURRENTLY WEARING A VERY DIRTY AND WORN SPLINT AND SLING ON RIGHT ARM PT STATES SHE BROKE HER ELBOW 2 WEEKS AGO, AND IS BEING FOLLOWED WITH ORTHO 4 STATES IN [place]. PCP: [facility] Allergies and Home Medications Allergies Coded Allergies: aspirin (Verified Adverse Reaction, Unknown, 09/02/18) WAS TOLD NOT TO TAKE IT AFTER HER TUBAL PREGANANCY Patient Home Medication List Home Medication List Reviewed: Yes Amoxicillin/Potassium Clav (Augmentin 875-125 Tablet) 1 Each Tablet, 1 EACH PO BID Prescribed by: FRED CARMONA on 07/17/191956 Cyclobenzaprine HCl (Cyclobenzaprine HCl) 10 Mg Tablet, 10 MG PO Q8H PRN for SPASMS Prescribed by: ADAN WRIGHT on 05/15/22 2349 Fluoxetine HCl (Prozac) 20 Mg Capsule, 20 MG PO DAILY, (Reported) Entered as Reported by: SILVER SELLERS on 01/15/19 1425 Hydrocodone/Acetaminophen (Hydrocodone/Acetaminophen 5 MG/325 MG TAB) 1 Each Tablet, 1 TAB PO Q4-6HR Prescribed by: LEON ENNIS on 01/16/19 1504 Hyoscyamine Sulfate (Levsin-Sl) 0.125 Mg Tab.subl, 0.125 MG SL Q4H PRN for CRAMPS Prescribed by: FRED CARMONA on 03/20/19 1518 Naproxen (Naproxen) 500 Mg Tablet.dr, 500 MG PO BID Prescribed by: ADAN WRIGHT on 05/15/22 2349 Ondansetron (Ondansetron Odt) 4 Mg Tab.rapdis, 4 MG PO Q6H PRN for NAUSEA/VOMITING-1ST LINE Prescribed by: ZHOU ALBRIGHT on 07/14/21 1556 Ondansetron HCl (Zofran) 4 Mg Tab, 4 MG PO Q4H PRN for NAUSEA/VOMITING-1ST LINE Prescribed by: FRED CARMONA on 03/20/19 1518 Review of Systems Review of Systems Constitutional: no symptoms reported Eyes: No Symptoms Reported Ears, Nose, Mouth, Throat: see HPI Respiratory: no symptoms reported Cardiovascular: no symptoms reported Gastrointestinal: no symptoms reported Genitourinary: no symptoms reported : No Musculoskeletal: see HPI Skin: no symptoms reported; No rash Psychiatric/Neurological: See HPI Past Pvisksk-Qrryjx-Crrduj Hx Patient Social History Tobacco Use?: Yes Tobacco type used: Cigarettes Smoking Status: Current Everyday Smoker Use of E-Cig and/or Vaping dev: No Substance use?: No (DENIES) Alcohol Use?: No (DENIES) Immunizations Up To Date Influenza Vaccine Up-to-Date: No; Not Current First/Initial COVID19 Vaccinat: NONE Second COVID19 Vaccination Armando: NONE Third COVID19 Vaccination Date: NONE COVID19 Vaccine Wire Spring Relay Adjuster: NONE Seasonal Allergies Seasonal Allergies: Yes Past Medical History Surgery/Hospitalization HX: COLONOSCOPY WITH POLYPECTOMY [address] PORTILLO Surgeries: Yes (ECTOPIC PREG WITH SALPINGO-OOPHORECTOMY;RT WRIST FX/ORIF 2018) Section, Gallbladder, Oophorectomy, Orthopedic Respiratory: Yes (CHILDHOOD ) Asthma Cardiac: No Neurological: No Reproductive Disorders: Yes (ECTOPIC WITH SALPINGO-OOPHORECTOMY 2014) Female Reproductive Disorders: Denies Sexually Transmitted Disease: No HIV/AIDS: No Genitourinary: No Gastrointestinal: Yes (HEP C) Chronic Constipation, Chronic Diarrhea, Hepatitis, Polyps, Gall Bladder Disease Musculoskeletal: Yes (RIGHT DISTAL RADIUS FX/ORIF 2018) Fibromyalgia, Chronic Back Pain, Fractures Endocrine: No HEENT: No Loss of Vision: Denies Hearing Impairment: Denies Cancer: No Psychosocial: Yes Depression Integumentary: No Blood Disorders: No Adverse Reaction/Blood Tranf: No (N/A) Physical Exam Vital Signs Vital Signs - First Documented 05/15/22 23:30 Temp 36.8 Pulse 102 Resp 20 B/P (MAP) 128/93 (105) Pulse Ox 100 O2 Delivery Room Air Capillary Refill : Less Than 3 Seconds Height, Weight, BMI Height: 5'5.00" Weight: 125lbs. 0.0oz. [id number]; 17.00 BMI Method:Stated General Appearance: WD/WN, no apparent distress, other (RIGHT ARM IN SPLINT AND SLING. PT WITH RAPID AND SOMEWHAT ERRATIC SPEECH AND CONSTANT MOVEMENTS. ) HEENT: PERRL/EOMI, normal ENT inspection, TMs normal, pharynx normal, other (TENDERNESS TO RIGHT POSTERIOR PARIETAL AND OCCIPITAL AREAS, AND DOWN TO RIGHT LATERAL /POSTERIOR NECK AREA. NO SKIN CHANGES. NO PINPOINT MASTOID TENDERNESS AND NO ABNORMALITIES OF MASTOID AREA. NO ABNORMALITIES OR TENDERNESS TO RIGHT EXTERNAL EAR. ) Neck: full range of motion, supple Cardiovascular: regular rate, rhythm, no murmur Respiratory: normal breath sounds, no respiratory distress, no accessory muscle use Gastrointestinal: soft Back: normal inspection Extremities: normal capillary refill, other ( ABOVE. DISTAL MOTOR/SENSORY/VASCULAR INTACT TO FINGERS OF RIGHT ARM. ) Psychiatric: alert, oriented x 3 Crainal Nerves: normal hearing, normal speech, PERRL Coordination/Gait: normal gait Motor/Sensory: no motor deficit, no sensory deficit Skin: normal color, warm/dry Progress/Results/Core Measures Results/Orders My Orders Orders - ADAN WRIGHT DO Ketorolac Injection (Toradol Injection) (05/16/22 00:00) Orphenadrine Inj (Ed Only) (Norflex Inje (05/16/22 00:00) Diphenhydramine Injection (Benadryl Inje (05/16/22 00:00) Medications Given in ED Current Medications Medications Dose Ordered Sig/Leah Route Start Time Stop Time Status Last Admin Dose Admin Diphenhydramine HCl 50 mg ONCE ONCE IM 05/16/22 00:00 05/16/22 00:01 DC 05/16/22 00:16 50 MG Ketorolac Tromethamine 60 mg ONCE ONCE IM 05/16/22 00:00 05/16/22 00:01 DC 05/16/22 00:17 60 MG Orphenadrine Citrate 60 mg ONCE ONCE IM 05/16/22 00:00 05/16/22:01 DC 05/16/22 00:17 60 MG Vital Signs/I&O 05/15/22 23:30 Temp 36.8 Pulse 102 Resp 20 B/P (MAP) 128/93 (105) Pulse Ox 100 O2 Delivery Room Air Blood Pressure Mean: 105 Departure Impression Primary Impression: Tension type headache Disposition: HOME, SELF-CARE Condition: Stable Departure-Patient Inst. Decision time for Depature: 23:48 [facility] Primary Care Physician LETITIA OGDEN (Family) Primary Care Physician Patient Instructions: Tension Headache (DC) Add. Discharge Instructions: MOIST HEAT TO AREA AT 20 MINUTE INTERVALS TYLENOL NEEDED FOR PAIN FOLLOW UP WITH [facility] IN 1-2 DAYS IF NO BETTER All discharge instructions reviewed with patient and/or family. Voiced understanding. Scripts Cyclobenzaprine HCl (Cyclobenzaprine HCl) 10 Mg Tablet 10 MG PO Q8H PRN for SPASMS, #10 TAB 0 Refills Prov: ADAN WRIGHT DO 05/15/22 Naproxen (Naproxen) 500 Mg Tablet. 500 MG PO BID, #20 TAB Prov: ADAN WRIGHT DO 05/15/22 ADAN WRIGHT DO May 15, 2022 23:49
[2022-05-16] MEDS ORDERED: diphenhydrAMINE 50 MG/ML INJ (BENADRYL) IM ONE
[2022-05-16] MEDS ORDERED: ORPHENADRINE 60 MG/2 ML (NORFLEX) AMP (ED ONLY) IM ONE
[2022-05-16] MEDS ORDERED: KETOROLAC 60 MG/2 ML VIAL IM ONE
== END 2022-05-16 00:19 | disposition home or self-care (01) ==
LOC: EDUNIT# 23:20 → ER 23:22
DX: G44.209 Tension-type headache, unspecified, not intractable (principal); F17.210 Nicotine dependence, cigarettes, uncomplicated; Z28.310 Unvaccinated for COVID-19
CPT/HCPCS: 96372; 99284

== ENCOUNTER 2022-09-28 15:48 | Emergency (ER) | payer BC, MEDICAID ==
[~2022-09-28] VITALS: Ht 166 cm; Wt 47.2 kg
[~2022-09-28 15:48] MED LIST changes: +CYCL10TA25 PO; +NAPR500T8 PO
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
[2022-09-28] MEDS: ONDANSETRON 4 MG/2 ML (SDV) Z0FRAN IVP ONE (16:16)
[2022-09-28] MEDS: LACTATED RINGERS 1,000 ML IV ONE (16:16)
[2022-09-28 17:19] LABS: BILIRUBIN,URINE NEGATIVE (NEGATIVE); CLARITY,URINE CLEAR; COLOR,URINE YELLOW; GLUCOSE, URINE (UA) NEGATIVE (NEGATIVE); KETONES,URINE NEGATIVE (NEGATIVE); LEUKOCYTE ESTERASE ,URINE NEGATIVE (NEGATIVE); NITRITE,URINE NEGATIVE (NEGATIVE); PROTEIN,URINE NEGATIVE (NEGATIVE)
[2022-09-28 17:33] LABS: BACTERIA,URINE TRACE /HPF; RBC,URINE 0-2 /HPF
[2022-09-28 17:34] LABS: AMORPHOUS SEDIMENT,UR FEW AMOR URATES /LPF
[2022-09-28 17:45] LABS: BASOPHILS % (AUTO) 0 % (0-10); EOSINOPHILS # (AUTO) 0.1 10^3/uL (0.0-0.3); EOSINOPHILS % (AUTO) 1 % (0-10); HEMATOCRIT 37 % (35-52); HEMOGLOBIN 12.1 g/dL (11.5-16.0); LYMPHOCYTES # (AUTO) 0.7 10^3/uL (1.0-4.0); LYMPHOCYTES % (AUTO) 7 % (12-44); MEAN CORPUSCULAR HEMOGLOBIN 29 pg (25-34); MEAN CORPUSCULAR HGB CONC 32 g/dL (32-36); MEAN CORPUSCULAR VOLUME 91 fL (80-99); MEAN PLATELET VOLUME 10.2 fL (9.0-12.2); MONOCYTES % (AUTO) 9 % (0-12); NEUTROPHILS # (AUTO) 9.3 10^3/uL (1.8-7.8); NEUTROPHILS % (AUTO) 83 % (42-75); PLATELET COUNT 139 10^3/uL (130-400); WHITE BLOOD COUNT 11.1 10^3/uL (4.3-11.0)
[2022-09-28 17:57] LABS: ALBUMIN 4.4 GM/DL (3.2-4.5); POTASSIUM 3.9 MMOL/L (3.6-5.0)
[2022-09-28 17:58] LABS: CALCIUM 9.9 MG/DL (8.5-10.1)
[2022-09-28 18:00] LABS: TOTAL PROTEIN 8.3 GM/DL (6.4-8.2)
[2022-09-28 18:01] LABS: BILIRUBIN,TOTAL 0.5 MG/DL (0.1-1.0)
[2022-09-28 18:03] LABS: CREATININE SERUM 0.74 MG/DL (0.60-1.30)
[2022-09-28 18:06] LABS: MAGNESIUM 1.6 MG/DL (1.6-2.4)
[2022-09-28 18:20] LABS: BAND NEUTROPHILS 14 %; BASOPHILS % (MANUAL) 1 %; EOSINOPHILS % (MANUAL) 2 %; LYMPHOCYTES % (MANUAL) 8 %; MONOCYTES % (MANUAL) 5 %; NEUTROPHILS % (MANUAL) 69 %
[2022-09-28 18:21] LABS: METAMYELOCYTES % 1 %; PLATELET ESTIMATE NORMAL; RBC MORPH NORMAL
[2022-09-28] MEDS ORDERED: DICY20TA PO (18:34)
[2022-09-28] MEDS ORDERED: ONDA4TAB11 PO (18:34)
[2022-09-28 18:57] VITALS: BP 127/91
== END 2022-09-28 19:01 | disposition home or self-care (01) ==
LOC: EDUNIT# 15:48 → ER 15:49
DX: R11.2 Nausea with vomiting, unspecified (principal); R10.84 Generalized abdominal pain; D72.829 Elevated white blood cell count, unspecified; R79.81 Abnormal blood-gas level; F17.210 Nicotine dependence, cigarettes, uncomplicated; Z28.310 Unvaccinated for COVID-19; Z20.822 Contact with and (suspected) exposure to COVID-19; Z87.19 Personal history of other diseases of the digestive system; Z90.49 Acquired absence of other specified parts of digestive tract
CPT/HCPCS: 36415; 80053; 81000; 82150; 83690; 83735; 84703; 85007; 85027; 87636; 93041

== ENCOUNTER 2023-01-24 12:27 | Emergency (ER) | payer MEDICAID ==
[~2023-01-24] VITALS: Ht 152 cm; Wt 49.8 kg
[~2023-01-24 12:27] MED LIST changes: +DICY20TA PO
== END 2023-01-24 12:50 | disposition left against medical advice (07) ==
LOC: EDUNIT# 12:27 → ER 12:29
DX: M25.511 Pain in right shoulder (principal); M79.604 Pain in right leg; V57.6XXA Passenger in pick-up truck or van injured in collision with fixed or stationary object in traffic accident, initial encounter; Y92.410 Unspecified street and highway as the place of occurrence of the external cause
CPT/HCPCS: 99285

== ENCOUNTER 2023-03-19 13:15 | Emergency (ER) | payer MEDICAID ==
[~2023-03-19] VITALS: Ht 160 cm; Wt 45.3 kg
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
[2023-03-19 14:11] VITALS: BP 140/94
== END 2023-03-19 14:11 | disposition home or self-care (01) ==
LOC: EDUNIT# 13:15 → ER 13:17
DX: T74.21XA Adult sexual abuse, confirmed, initial encounter (principal); F17.210 Nicotine dependence, cigarettes, uncomplicated; Z28.310 Unvaccinated for COVID-19
CPT/HCPCS: 99281